=== PATIENT | female | born 1980 | race Caucasian/White ===

== ENCOUNTER 2017-04-17 13:56 | Inpatient (IN) | payer OTHER ==
[2017-04-17 13:56] VITALS: BMI 26.6
[2017-04-17] MEDS ORDERED: Sodium Chloride 0.9% 1,000 ML IV ONE ×2 (14:07→18:09)
[2017-04-17] MEDS ORDERED: Morphine 4 MG/ML VIAL ONE ×2 (14:13→17:30)
[2017-04-17] MEDS ORDERED: Sodium Chloride 0.9% 1,000 ML ONE (14:13)
--- NOTE | 2017-04-17 14:14 | C.PDOC ---
History Of Present Illness Patient is a 36 year old female who presents to the ER with a complaint of right sided abdominal pain that began today. Patient reports she had a laparoscopic cholecystectomy done 6 days ago and states she has felt fine until this pain today. Patient notes she did not attempt to contact her surgeon and has been taking percocet for the pain. Denies fever, chills, nausea or vomiting. Time Seen by Provider: 04/17/17 13:59 Chief Complaint (Nursing): Abdominal Pain History Per: Patient History/Exam Limitations: no limitations Onset/Duration Of Symptoms: Days (6) Current Symptoms Are (Timing): Still Present Location Of Pain/Discomfort: RUQ Radiation Of Pain To:: None Quality Of Discomfort: Unable To Describe Associated Symptoms: denies: Fever, Chills, Nausea, Vomiting Exacerbating Factors: None Alleviating Factors: None Recent travel outside of the [place]: No Abnormal Vaginal Bleeding: No Past Medical History Reviewed: Historical Data, Nursing Documentation, Vital Signs Vital Signs: Last Vital Signs Temp 98.4 F 04/17/17 17:09 Pulse 71 04/17/17 17:09 Resp 20 04/17/17 17:09 BP 141/89 04/17/17 17:09 Pulse Ox 98 04/17/17 18:09 - Medical History PMH: Gall Bladder Disease (Gall bladder stones), Migraine Surgical History: Cholecystectomy (04/11/2017) - [facility] Procedures MANUAL ASSIST KENNY SMITH (08/05/13) Family History: States: Unknown Family Hx - Social History Hx Tobacco Use: No Hx Alcohol Use: No Hx Substance Use: No - Immunization History Hx Tetanus Toxoid Vaccination: No Hx Influenza Vaccination: No Hx Pneumococcal Vaccination: No Review Of Systems Except As Marked, All Systems Reviewed And Found Negative. Constitutional: Negative for: Fever, Chills Gastrointestinal: Positive for: Abdominal Pain (RUQ). Negative for: Nausea, Vomiting Physical Exam - Physical Exam Appears: Non-toxic, No Acute Distress Skin: Normal Color, Warm, Dry Head: Atraumatic, Normacephalic Oral Mucosa: Moist Chest: Symmetrical, No Tenderness Cardiovascular: Rhythm Regular, No Murmur Respiratory: Normal Breath Sounds, No Rales, No Rhonchi, No Wheezing Gastrointestinal/Abdominal: Soft, Tenderness (RUQ) Neurological/Psych: Oriented x3, Normal Speech, Normal Cognition Gait: Steady ED Course And Treatment - Laboratory Results Result Diagrams: 04/17/17 14:38 04/17/17 14:38 Lab Interpretation: Abnormal Urine POC: Negative O2 Sat by Pulse Oximetry: 98 (Room air) Pulse Ox Interpretation: Normal - CT Scan/US No standard instances Other Rad Studies (CT/US): Read By Radiologist, Radiology Report Reviewed CT/US Interpretation: FINDINGS: LOWER THORAX: Unremarkable. LIVER: Unremarkable. No gross lesion or ductal dilatation. GALLBLADDER AND BILE DUCTS : Status post laparoscopic cholecystectomy 6 days previous. Small amount of fluid/soft tissue density seen in gallbladder fossa. PANCREAS: Unremarkable. No gross lesion or ductal dilatation. SPLEEN: Unremarkable. ADRENALS: Unremarkable. No mass. KIDNEYS AND URETERS: Unremarkable. No hydronephrosis. No solid mass. VASCULATURE: Unremarkable. No aortic aneurysm. BOWEL: Mild circumferential mural thickening of descending colon most likely artifactual secondary to lack of distension. APPENDIX: Unremarkable. Normal appendix. PERITONEUM: Small amount of fluid in cul-de-sac. Minimal fluid inferior to right lobe of liver and right pericolic gutter. Small amount of pneumoperitoneum identified. This is likely residual status post cholecystectomy. LYMPH NODES: Unremarkable. No enlarged lymph nodes. BLADDER : Unremarkable. REPRODUCTIVE: Normal uterus. BONES: No acute fracture. OTHER FINDINGS: None. IMPRESSION: Expected postoperative changes 6 day status post laparoscopic cholecystectomy. These include a small amount of pneumoperitoneum. Small amount of fluid in cul-de-sac and fluid/soft tissue density in gallbladder fossa. No evidence of abscess. No other significant abnormality. Progress Note: CT of abd/pel, blood work and urinalysis ordered. Morphine and IV fluids administered. Treated with additional IVF NSS and toradol 30 mg IV. Case discussed and patient evaluated by surgical supervisor. Treated with additional IVF and Zosyn. Continues to C/O abdominal pain. Treated with additional morphine 4 mg IV Reassessment Condition: Unchanged - Physician Consult Information Physician Contacted: Dorie Anton Outcome Of Conversation: admit Disposition Discussed With : Dorie Anton Doctor Will See Patient In The: Hospital - Disposition Disposition: HOME/ ROUTINE Disposition Time: 17:40 Condition: STABLE - POA Present On Arrival: None - Clinical Impression Clinical Impression: Abdominal pain - Scribe Statement The provider has reviewed the documentation as recorded by the Scribmaxine Walden All medical record entries made by the Suzieibe were at my direction and personally dictated by me. I have reviewed the chart and agree that the record accurately reflects my personal performance of the history, physical exam, medical decision making, and the department course for this patient. I have also personally directed, reviewed, and agree with the discharge instructions and disposition.
[2017-04-17 14:49] LABS: BASO # 0.2 K/uL (0.0-0.2); BASO % 0.9 % (0.0-2.0); EOS % 0.2 % (0.0-4.0); HEMATOCRIT 38.5 % (34.0-47.0); LYMPH # 1.8 K/uL (1.0-4.3); LYMPH % 8.9 % (20.0-40.0); MEAN CORPUSCULAR HEMOGLOBIN 25.8 pg (27.0-31.0); MEAN CORPUSCULAR HGB CONC 31.9 g/dL (33.0-37.0); MEAN PLATELET VOLUME 8.7 fL (7.2-11.7); MONO # 0.6 K/uL (0.0-0.8); MONO % 3.2 % (0.0-10.0); PLATELET COUNT 331 K/uL (130-400)
[2017-04-17 15:00] LABS: MEAN CELL VOLUME 80.6 fL (81.0-99.0); WHITE BLOOD COUNT 20.2 K/uL (4.8-10.8)
[2017-04-17 15:15] LABS: CHLORIDE 97 mmol/L (98-107); POTASSIUM 3.7 mmol/L (3.6-5.2); SODIUM 136 mmol/L (132-148)
[2017-04-17 15:17] LABS: BILIRUBIN,TOTAL 0.5 mg/dL (0.2-1.3); GFR AFRICAN-AMERICAN > 60
[2017-04-17 15:18] LABS: ALB/GLOB RATIO 1.1 (1.0-2.1); ALKALINE PHOSPHATASE 57 U/L (38-126); ALT/SGPT 45 U/L (9-52); AST/SGOT 31 U/L (14-36); BLOOD UREA NITROGEN 13 mg/dL (7-17); CALCIUM 8.8 mg/dl (8.6-10.4); CARBON DIOXIDE 23 mmol/L (22-30); GLUCOSE,RANDOM 112 mg/dL (65-105); TOTAL PROTEIN 7.7 g/dL (6.3-8.3)
[2017-04-17 15:23] LABS: EOSINOPHIL 1 % (0-4); NEUTROPHIL 88 % (50-75); TOTAL CELLS COUNTED 100
[2017-04-17 15:44] LABS: RBC URINE 5 /hpf (0-3); URINE BACTERIA RARE (<OCC); URINE BILIRUBIN NEGATIVE (NEGATIVE); URINE BLOOD 1+ (NEGATIVE); URINE COLOR Yellow (YELLOW); URINE GLUCOSE (UA) NORMAL (Normal); URINE HYALINE CAST 0-2 /lpf (0-2); URINE KETONE NEGATIVE (NEGATIVE); URINE LEUKOCYTE ESTERASE 1+ Leu/uL (Negative); URINE PROTEIN 1+ mg/dL (NEGATIVE); URINE UROBILINOGEN NORMAL mg/dL (0.2-1.0); WBC URINE 14 /hpf (0-5)
--- NOTE | 2017-04-17 16:18 | CT ---
PROCEDURE: CT Abdomen and Pelvis without intravenous contrast HISTORY: Pain COMPARISON: None. TECHNIQUE: Without contrast.. Contrast Dose: 0 Radiation dose: Total exam DLP = 429.88 mGy-cm. This CT exam was performed using one or more of the following dose reduction techniques: Automated exposure control, adjustment of the mA and/or kV according to patient size, and/or use of iterative reconstruction technique. FINDINGS: LOWER THORAX: Unremarkable. LIVER: Unremarkable. No gross lesion or ductal dilatation. GALLBLADDER AND BILE DUCTS: Status post laparoscopic cholecystectomy 6 days previous. Small amount of fluid/soft tissue density seen in gallbladder fossa. PANCREAS: Unremarkable. No gross lesion or ductal dilatation. SPLEEN: Unremarkable. ADRENALS: Unremarkable. No mass. KIDNEYS AND URETERS: Unremarkable. No hydronephrosis. No solid mass. VASCULATURE: Unremarkable. No aortic aneurysm. BOWEL: Mild circumferential mural thickening of descending colon most likely artifactual secondary to lack of distension. APPENDIX: Unremarkable. Normal appendix. PERITONEUM: Small amount of fluid in cul-de-sac. Minimal fluid inferior to right lobe of liver and right pericolic gutter. Small amount of pneumoperitoneum identified. This is likely residual status post cholecystectomy. LYMPH NODES: Unremarkable. No enlarged lymph nodes. BLADDER: Unremarkable. REPRODUCTIVE: Normal uterus. BONES: No acute fracture. OTHER FINDINGS: None. IMPRESSION: Expected postoperative changes 6 day status post laparoscopic cholecystectomy. These include a small amount of pneumoperitoneum. Small amount of fluid in cul-de-sac and fluid/soft tissue density in gallbladder fossa. No evidence of abscess. No other significant abnormality.
[2017-04-17] MEDS ORDERED: Piperacillin/Tazobact 3.375 gm 100 ML IV STA (17:28)
--- NOTE | 2017-04-17 18:20 | CP.PCM.CON ---
<Karri Leo - Last Filed: 04/17/17 19:46> History of Present Illness - History of Present Illness History of Present Illness: Surgery: Dr. Richards CC: abd pain HPI: 36F recently underwent lap liane 6 days ago at [place] for cholecystitis. Pt does not recall surgeons name. Post operatively pt was doing well up until today. Starting today she had acute onset of abd pain. Pain was described as burning. Pain is diffuse but more prominent on the R side. Pt states that the pain radiates to the back and radiates to the groin. She states that she has nausea and vomitted 3xm NBNB. She reports subjective fever and chills. She also stats that she has pain on urination. Denies any hematuria. She denies [place]/blurred vision, no CP/palpitations, no SOB/cough, no diarrhea. PMH: migraine PSH: lap liane Meds: MAR reviewed NKDA Social: No ETOH/tobacco/drugs Fhx: non-contributory Review of Systems - Review of Systems All systems: reviewed and no additional remarkable complaints except (HPI) Past Patient History - Infectious Disease Hx of Infectious Diseases: None - Past Social History Smoking Status: Never Smoked - NEUROLOGICAL Hx Migraine: Yes - GASTROINTESTINAL Hx Gall Bladder Disease: Yes (Gall bladder stones) - PSYCHIATRIC Hx Substance Use: No - SURGICAL HISTORY Hx Cholecystectomy: Yes (04/11/2017) - ANESTHESIA Hx Anesthesia: Yes Hx Anesthesia Reactions: No Hx Malignant Hyperthermia: No Meds Allergies/Adverse Reactions: Allergies Allergy/AdvReac Type Severity Reaction Status Date / Time No Known Allergies Allergy Verified 04/17/17 14:05 - Medications Medications: Current Medications Sodium Chloride (Sodium Chloride 0.9%) 1,000 mls @ 100 mls/hr IV .Q10H [facility] Sodium Chloride (Sodium Chloride 0.9%) 1,000 mls @ 1,000 mls/hr IV .Q1H ONE Stop: 04/17/17 19:08 Physical Exam - Constitutional Appears: Non-toxic, In Acute Distress - Head Exam Head Exam: ATRAUMATIC, NORMOCEPHALIC - Eye Exam Eye Exam: EOMI. absent: Scleral icterus - ENT Exam ENT Exam: Mucous Membranes Moist, Normal External Ear Exam - Neck Exam Neck exam: Positive for: Full Rom - Respiratory Exam Respiratory Exam: NORMAL BREATHING PATTERN. absent: Accessory Muscle Use, Respiratory Distress - GI/Abdominal Exam GI & Abdominal Exam: Guarding, Soft, Tenderness (diffuse, R>L). absent: Distended, Firm, Rebound, Rigid - Extremities Exam Extremities exam: Negative for: calf tenderness, pedal edema - Back Exam Back exam: CVA tenderness (R) (exquisitely tender). absent: CVA tenderness (L) - Neurological Exam Neurological exam: Alert, Oriented x3 - Skin Skin Exam: Dry, Normal Color, Warm Results - Vital Signs Recent Vital Signs: Last Vital Signs Temp 98.4 F 04/17/17 17:09 Pulse 71 04/17/17 17:09 Resp 20 04/17/17 17:09 BP 141/89 04/17/17 17:09 Pulse Ox 98 04/17/17 18:09 - Labs Result Diagrams: 04/17/17 14:38 04/17/17 14:38 - Imaging and Cardiology CT scan - abdomen Status: Image reviewed by me, Report reviewed by me Assessment & Plan - Assessment and Plan (Free Text) Assessment: 36F s/p lap liane POD#6 w. acute onset abd pain. Do not think pain is related to sx. DDX: Nephrolithaisis/Pyelonephritis/UTI -NPO -IVF -IV abx -pain meds -zofran -serial abd exams -f/u renal U/S -will follow closely -case d/w attending Ahmet PGY2 <Clinton Richards - Last Filed: 04/19/17 22:24> Meds - Medications Medications: Current Medications Hydromorphone HCl (Dilaudid) 0.5 mg IVP Q4H PRN PRN Reason: Pain, moderate (4-7) Last Admin: 04/18/17 01:37 Dose: 0.5 mg Sodium Chloride (Sodium Chloride 0.9%) 1,000 mls @ 100 mls/hr IV .Q10H [facility] Last Admin: 04/19/17 21:47 Dose: 100 mls/hr Piperacillin Sod/Tazobactam Sod (Zosyn 2.25 Gm Iv Premix) 2.25 gm in 50 mls @ 100 mls/hr IVPB Q6H [facility] Last Admin: 04/19/17 18:44 Dose: 100 mls/hr Ondansetron HCl (Zofran Inj) 4 mg IVP Q4 PRN PRN Reason: Nausea/Vomiting Pantoprazole Sodium (Protonix Inj) 40 mg IVP DAILY [facility] Last Admin: 04/19/17 10:05 Dose: 40 mg Simethicone (Mylicon Chew Tab) 80 mg PO DAILY [facility] Last Admin: 04/19/17 12:14 Dose: Not Given Results - Vital Signs Recent Vital Signs: Last Vital Signs Temp 98.1 F 04/19/17 16:00 Pulse 95 H 04/19/17 16:00 Resp 20 04/19/17 16:00 BP 134/75 04/19/17 16:00 Pulse Ox 93 L 04/19/17 16:00 - Labs Result Diagrams: 04/19/17 08:07 04/19/17 08:07 Labs: Laboratory Results - last 24 hr 04/19/17 04/19/17 08:07 08:07 WBC 7.7 RBC 3.85 Hgb 10.1 L Hct 31.1 L MCV 80.8 L MCH 26.3 L MCHC 32.6 L RDW 13.5 Plt Count 263 MPV 8.5 Neut % (Auto) 65.6 Lymph % (Auto) 24.3 [place] % (Auto) 6.0 Eos % (Auto) 3.5 Baso % (Auto) 0.6 Neut # 5.0 Lymph # 1.9 [place] # 0.5 Eos # 0.3 Baso # 0.0 Sodium 139 Potassium 3.4 L Chloride 108 H Carbon Dioxide 23 Anion Gap 11 BUN 5 L Creatinine 0.7 Est GFR ( Amer) > 60 Est GFR (Non-Af Amer) > 60 Random Glucose 114 H Calcium 8.0 L Total Bilirubin 0.6 AST 19 ALT 36 Alkaline Phosphatase 51 Total Protein 6.3 Albumin 3.2 L Globulin 3.1 Albumin/Globulin Ratio 1.0 Attending/Attestation - Attestation I have personally seen and examined this patient.: Yes I have fully participated in the care of the patient.: Yes I have reviewed all pertinent clinical information: Yes Notes (Text): 04/19/17 22:24 Pt was seen and examined at bedside on 04/18/17 Agree with above note and assessment. Pt with abdominal pain s/p Lap Cholecystectomy, UTI C/w IV antibiotics Plan d.w pt in detail Risk and benefit explained in detail.
[2017-04-17] MEDS ORDERED: metroNIDAZOLE IV 500 mg/100 ml 500 MG/100 ML BAG IVPB SCH (19:00)
[2017-04-17] MEDS: Sodium Chloride 0.9% 1,000 ML IV SCH (19:17)
[2017-04-17] MEDS ORDERED: Ciprofloxacin 400mg/200ml D5W 400 MG/200 ML BAG IVPB SCH (19:30)
--- NOTE | 2017-04-17 19:51 | CP.PCM.HP ---
History of Present Illness - History of Present Illness History of Present Illness: CC: abdominal pain HPI: 36F with history of recent lap liane 6 days ago for cholecystitis presented today. Pt has been doing well until today when she started having right sided abdominal pain. Patient said she has pain RLQ and RUQ and both described as sharp pain. Her RLQ pain radiates to the back. Patient also said she has associated burning urination, fever and chills. Patient also had 3 episodes of NBNB vomit. Patient also said she only had one episode of BM since her operation. Denied chest pain, palpitations, SOB, diarrhea, hematuria. PMHx: cholecystitis PSHx: lap liane 6 days ago FMHx: father had [place], mother has HTN Social: Denied ETOH or smoking Present on Admission - Present on Admission Any Indicators Present on Admission: No Review of Systems - Constitutional Constitutional: absent: Anorexia, Weakness - Cardiovascular Cardiovascular: absent: Chest Pain, Dyspnea, Pedal Edema - Respiratory Respiratory: absent: Cough, Dyspnea - Gastrointestinal Gastrointestinal: Abdominal Pain, Constipation, Nausea, Vomiting. absent: Diarrhea - Genitourinary Genitourinary: Pyuria. absent: Dysuria Past Patient History - Infectious Disease Hx of Infectious Diseases: None - Past Social History Smoking Status: Never Smoked - NEUROLOGICAL Hx Migraine: Yes - GASTROINTESTINAL Hx Gall Bladder Disease: Yes (Gall bladder stones) - PSYCHIATRIC Hx Substance Use: No - SURGICAL HISTORY Hx Cholecystectomy: Yes (04/11/2017) - ANESTHESIA Hx Anesthesia: Yes Hx Anesthesia Reactions: No Hx Malignant Hyperthermia: No Meds Allergies/Adverse Reactions: Allergies Allergy/AdvReac Type Severity Reaction Status Date / Time No Known Allergies Allergy Verified 04/17/17 14:05 Physical Exam - Constitutional Appears: Non-toxic, In Acute Distress - Head Exam Head Exam: NORMOCEPHALIC - Eye Exam Eye Exam: Normal appearance Pupil Exam: NORMAL ACCOMODATION - Respiratory Exam Respiratory Exam: Clear to Auscultation Bilateral, NORMAL BREATHING PATTERN. absent: Rhonchi, Wheezes - Cardiovascular Exam Cardiovascular Exam: REGULAR RHYTHM, +S1, +S2. absent: Gallop, Rubs - GI/Abdominal Exam GI & Abdominal Exam: Guarding, Normal Bowel Sounds, Soft, Tenderness. absent: Distended, Firm, Hernia, Rebound, Rigid - Extremities Exam Extremities exam: Negative for: pedal edema - Neurological Exam Neurological exam: Alert, Oriented x3 - Psychiatric Exam Psychiatric exam: Normal Mood - Skin Additional comments: RLQ and RUQ, paraumbilical and RUQ incisions dry, intact and nonerythematous Results - Vital Signs Recent Vital Signs: Last Vital Signs Temp 98.4 F 04/17/17 17:09 Pulse 71 04/17/17 17:09 Resp 20 04/17/17 17:09 BP 141/89 04/17/17 17:09 Pulse Ox 98 04/17/17 18:40 - Labs Result Diagrams: 04/17/17 14:38 04/17/17 14:38 Assessment & Plan - Assessment and Plan (Free Text) Assessment: Abdominal pain Secondary to nephrolithiasis vs GI issue CT showed small amount of pneumoperitoneum, no abscess and small amount of fluid in cul de sac in gallbladder fossa per report. NPO. NS@100ml/hr. Zosyn q6H. Surgery Dr. Richards consulted, help appreciated. GI Dr. Resendiz consulted, help appreciated. Morphine 4mg IVP q4H PRN and Toradol 30mg IVP q6H PRN. F/U renal and bladder ultrasound. Prophylactic measure Protonix, SCD.
[2017-04-17] MEDS: HYDROmorphone 0.5 mg/0.5 ml ISec IVP PRN (20:08)
[2017-04-17] MEDS: Piperacill/Tazo 2.25gm in Dex 2.25 GM/50 ML BAG IVPB SCH (23:33)
[2017-04-18 00:34] VITALS: RESP 20
[2017-04-18] MEDS: HYDROmorphone 0.5 mg/0.5 ml ISec IVP PRN (01:37)
[2017-04-18] MEDS: Sodium Chloride 0.9% 1,000 ML IV SCH ×3 (03:48→18:20)
[2017-04-18] MEDS: Piperacill/Tazo 2.25gm in Dex 2.25 GM/50 ML BAG IVPB SCH ×3 (05:42→18:19)
--- NOTE | 2017-04-18 07:02 | CP.PCM.PN ---
<ChintanlouislaureKarri - Last Filed: 04/18/17 07:03> Subjective - Date & Time of Evaluation Date of Evaluation: 04/18/17 Time of Evaluation: 06:59 - Subjective Subjective: Surgery: Dr. Richards Pt seen and examined. Pain is significantly improved compared to yesterday. Pt still has dysuria. She states that she has gas pain. She also states that she is hungry. Objective - Vital Signs/Intake and Output Vital Signs (last 24 hours): Temp Pulse Resp BP Pulse Ox 98.4 F 85 20 121/74 98 04/18/17 00:00 04/18/17 00:00 04/18/17 00:00 04/18/17 00:00 04/18/17 00:00 Intake and Output: 04/17/17 04/18/17 18:59 06:59 Intake Total 1200 Balance 1200 - Medications Medications: Current Medications Hydromorphone HCl (Dilaudid) 0.5 mg IVP Q4H PRN PRN Reason: Pain, moderate (4-7) Last Admin: 04/18/17 01:37 Dose: 0.5 mg Sodium Chloride (Sodium Chloride 0.9%) 1,000 mls @ 100 mls/hr IV .Q10H [facility] Last Admin: 04/18/17 03:48 Dose: 100 mls/hr Piperacillin Sod/Tazobactam Sod (Zosyn 2.25 Gm Iv Premix) 2.25 gm in 50 mls @ 100 mls/hr IVPB Q6H [facility] Last Admin: 04/18/17 05:42 Dose: 100 mls/hr Ketorolac Tromethamine (Toradol) 30 mg IVP Q6 PRN PRN Reason: moderate pain Last Admin: 04/18/17 02:28 Dose: 30 mg Morphine Sulfate (Morphine) 4 mg IVP Q4 PRN PRN Reason: severe pain Ondansetron HCl (Zofran Inj) 4 mg IVP Q4 PRN PRN Reason: Nausea/Vomiting Pantoprazole Sodium (Protonix Inj) 40 mg IVP DAILY [facility] Pneumococcal Polyvalent Vaccine (Pneumovax 23 Vaccine) 0.5 ml IM .ONCE ONE Stop: 04/19/17 10:01 - Constitutional Appears: Non-toxic, No Acute Distress - Head Exam Head Exam: ATRAUMATIC, NORMOCEPHALIC - Eye Exam Eye Exam: EOMI - ENT Exam ENT Exam: Mucous Membranes Moist - Neck Exam Neck Exam: Full ROM, Normal Inspection - Respiratory Exam Respiratory Exam: NORMAL BREATHING PATTERN. absent: Accessory Muscle Use, Respiratory Distress - GI/Abdominal Exam GI & Abdominal Exam: Soft, Tenderness (mild). absent: Distended, Firm, Guarding , Rigid, Rebound - Extremities Exam Extremities Exam: absent: Calf Tenderness, Pedal Edema - Back Exam Back Exam: absent: CVA tenderness (L), CVA tenderness (R) - Neurological Exam Neurological Exam: Alert, Awake, Oriented x3 Assessment and Plan - Assessment and Plan (Free Text) Assessment: 36F s/p lap liane POD#7 w. acute onset abd pain. DDX: Nephrolithaisis/Pyelonephritis/UTI -will start CLD, monitor bowel fxn, ADAT -f/u AM labs -f/u Cx results -IVF -IV abx -pain meds -zofran -serial abd exams -f/u renal U/S -case d/w attending Ahmet PGY2 <Clinton Richards B - Last Filed: 04/19/17 22:25> Objective - Vital Signs/Intake and Output Vital Signs (last 24 hours): Temp Pulse Resp BP Pulse Ox 98.1 F 95 H 20 134/75 93 L 04/19/17 16:00 04/19/17 16:00 04/19/17 16:00 04/19/17 16:00 04/19/17 16:00 Intake and Output: 04/19/17 04/20/17 18:59 06:59 Intake Total 1280 Balance 1280 - Medications Medications: Current Medications Hydromorphone HCl (Dilaudid) 0.5 mg IVP Q4H PRN PRN Reason: Pain, moderate (4-7) Last Admin: 04/18/17 01:37 Dose: 0.5 mg Sodium Chloride (Sodium Chloride 0.9%) 1,000 mls @ 100 mls/hr IV .Q10H [facility] Last Admin: 04/19/17 21:47 Dose: 100 mls/hr Piperacillin Sod/Tazobactam Sod (Zosyn 2.25 Gm Iv Premix) 2.25 gm in 50 mls @ 100 mls/hr IVPB Q6H [facility] Last Admin: 04/19/17 18:44 Dose: 100 mls/hr Ondansetron HCl (Zofran Inj) 4 mg IVP Q4 PRN PRN Reason: Nausea/Vomiting Pantoprazole Sodium (Protonix Inj) 40 mg IVP DAILY [facility] Last Admin: 04/19/17 10:05 Dose: 40 mg Simethicone (Mylicon Chew Tab) 80 mg PO DAILY [facility] Last Admin: 04/19/17 12:14 Dose: Not Given - Labs Labs: 04/19/17 08:07 04/19/17 08:07 Attending/Attestation - Attestation I have personally seen and examined this patient.: Yes I have fully participated in the care of the patient.: Yes I have reviewed all pertinent clinical information, including history, physical exam and plan: Yes Notes (Text): 04/19/17 22:25 Pt was seen and examined at bedside on 04/18/17 Agree with above note and assessment. Pt with abdominal pain s/p Lap Cholecystectomy, UTI C/w IV antibiotics Plan d.w pt in detail Risk and benefit explained in detail.
--- NOTE | 2017-04-18 08:15 | CP.PCM.PN ---
<Fer Hall - Last Filed: 04/18/17 08:12> Subjective - Date & Time of Evaluation Date of Evaluation: 04/18/17 Time of Evaluation: 08:00 - Subjective Subjective: PGY3 on medicine Dr. Ferguson service: Pt seen and examined at bedside this morning. Pt reports her RLQ pain much improved since yesterday. Her RUQ pain persisted and additionally mild epigastric pain. She also said she is hungry. Pyuria still persisted, no BM. No acute events overnight per RN. Objective - Vital Signs/Intake and Output Vital Signs (last 24 hours): Temp Pulse Resp BP Pulse Ox 98.4 F 85 20 121/74 98 04/18/17 00:00 04/18/17 00:00 04/18/17 00:00 04/18/17 00:00 04/18/17 00:00 Intake and Output: 04/18/17 04/18/17 06:59 18:59 Intake Total 1200 Balance 1200 - Medications Medications: Current Medications Hydromorphone HCl (Dilaudid) 0.5 mg IVP Q4H PRN PRN Reason: Pain, moderate (4-7) Last Admin: 04/18/17 01:37 Dose: 0.5 mg Sodium Chloride (Sodium Chloride 0.9%) 1,000 mls @ 100 mls/hr IV .Q10H [facility] Last Admin: 04/18/17 03:48 Dose: 100 mls/hr Piperacillin Sod/Tazobactam Sod (Zosyn 2.25 Gm Iv Premix) 2.25 gm in 50 mls @ 100 mls/hr IVPB Q6H [facility] Last Admin: 04/18/17 05:42 Dose: 100 mls/hr Ketorolac Tromethamine (Toradol) 30 mg IVP Q6 PRN PRN Reason: moderate pain Last Admin: 04/18/17 02:28 Dose: 30 mg Ondansetron HCl (Zofran Inj) 4 mg IVP Q4 PRN PRN Reason: Nausea/Vomiting Pantoprazole Sodium (Protonix Inj) 40 mg IVP DAILY [facility] Pneumococcal Polyvalent Vaccine (Pneumovax 23 Vaccine) 0.5 ml IM .ONCE ONE Stop: 04/19/17 10:01 - Constitutional Appears: Non-toxic, No Acute Distress - Head Exam Head Exam: NORMAL INSPECTION, NORMOCEPHALIC - Eye Exam Eye Exam: Normal appearance Pupil Exam: NORMAL ACCOMODATION - ENT Exam ENT Exam: Mucous Membranes Moist - Respiratory Exam Respiratory Exam: Clear to Ausculation Bilateral, NORMAL BREATHING PATTERN. absent: Rhonchi, Wheezes - Cardiovascular Exam Cardiovascular Exam: REGULAR RHYTHM, +S1, +S2. absent: Gallop, Rubs - GI/Abdominal Exam GI & Abdominal Exam: Soft, Tenderness (epigastric and RUQ), Normal Bowel Sounds. absent: Distended, Guarding, Rebound - Extremities Exam Extremities Exam: absent: Pedal Edema - Neurological Exam Neurological Exam: Alert, Awake, Oriented x3 - Psychiatric Exam Psychiatric exam: Normal Mood - Skin Skin Exam: Intact Assessment and Plan - Assessment and Plan (Free Text) Assessment: Abdominal pain Secondary to nephrolithiasis vs GI issue CT showed small amount of pneumoperitoneum, no abscess and small amount of fluid in cul de sac in gallbladder fossa per report. 04/17: advance diet to CLD per surgery. F/U today's labs, CXR and renal ultrasound. NS@100ml/hr. Zosyn q6H. Surgery Dr. Richards consulted, help appreciated. GI Dr. Resendiz consulted, help appreciated. Morphine 4mg IVP q4H PRN and Toradol 30mg IVP q6H PRN. Prophylactic measure Protonix, SCD. <Brendon Ferguson H - Last Filed: 04/18/17 12:44> Objective - Vital Signs/Intake and Output Vital Signs (last 24 hours): Temp Pulse Resp BP Pulse Ox 98.2 F 77 20 116/77 99 04/18/17 08:27 04/18/17 08:27 04/18/17 08:27 04/18/17 08:27 04/18/17 08:27 Intake and Output: 04/18/17 04/18/17 06:59 18:59 Intake Total 1200 Balance 1200 - Medications Medications: Current Medications Hydromorphone HCl (Dilaudid) 0.5 mg IVP Q4H PRN PRN Reason: Pain, moderate (4-7) Last Admin: 04/18/17 01:37 Dose: 0.5 mg Sodium Chloride (Sodium Chloride 0.9%) 1,000 mls @ 100 mls/hr IV .Q10H [facility] Last Admin: 04/18/17 03:48 Dose: 100 mls/hr Piperacillin Sod/Tazobactam Sod (Zosyn 2.25 Gm Iv Premix) 2.25 gm in 50 mls @ 100 mls/hr IVPB Q6H [facility] Last Admin: 04/18/17 12:36 Dose: 100 mls/hr Ketorolac Tromethamine (Toradol) 30 mg IVP Q6 PRN PRN Reason: moderate pain Last Admin: 04/18/17 02:28 Dose: 30 mg Ondansetron HCl (Zofran Inj) 4 mg IVP Q4 PRN PRN Reason: Nausea/Vomiting Pantoprazole Sodium (Protonix Inj) 40 mg IVP DAILY [facility] Last Admin: 04/18/17 11:13 Dose: 40 mg Pneumococcal Polyvalent Vaccine (Pneumovax 23 Vaccine) 0.5 ml IM .ONCE ONE Stop: 04/19/17 10:01 - Labs Labs: 04/18/17 09:03 04/18/17 09:03 Attending/Attestation - Attestation I have personally seen and examined this patient.: Yes I have fully participated in the care of the patient.: Yes I have reviewed all pertinent clinical information, including history, physical exam and plan: Yes Notes (Text): 04/18/17 12:42 Medical Attending: Patient was seen and examined by me. Agree with the above note by the resident The patient WBC has decreased and the left shift decreased as well. Less pain today and is being started on a diet. Continue IV abx, monitor the cultures, possible UTI related Brendon Ferguson
--- NOTE | 2017-04-18 09:11 | CP.PCM.CON ---
History of Present Illness - History of Present Illness History of Present Illness: CC: Abdominal pain HPI: GI service consult requested for abdominal pain, S?P cholecystectomy [address]- normal postop changes in GB fossa. WBC elevated. Pain is ruQ and RLQ, without N/V, also pain in right flank. Started on Zosyn after UA showed pyuria. Seen by surgery consult and felt not to be related to GB process, but most likely infection. presently patient feels resolution of pain and is hungry. labs from today not available. Denies changes in bowel habits. Review of Systems - Constitutional Constitutional: Night Sweats. absent: Anorexia, Chills, Fever - EENT Eyes: absent: Change in Vision Nose/Mouth/Throat: absent: Nasal Discharge - Cardiovascular Cardiovascular: absent: Chest Pain - Respiratory Respiratory: absent: Dyspnea - Gastrointestinal Gastrointestinal: Abdominal Pain. absent: Change in Stool Character, Constipation, Diarrhea, Loose Stools, Melena, Nausea - Genitourinary Genitourinary: Dysuria - Musculoskeletal Musculoskeletal: Back Pain - Integumentary Integumentary: absent: Sores, Jaundice - Neurological Neurological: absent: Loss of Vision, Vertigo - Psychiatric Psychiatric: absent: Anxiety Past Patient History - Infectious Disease Hx of Infectious Diseases: None - Past Medical History & Family History Past Medical History?: Yes - Past Social History Smoking Status: Never Smoked - NEUROLOGICAL Hx Migraine: Yes - MUSCULOSKELETAL/RHEUMATOLOGICAL Hx Falls: No - GASTROINTESTINAL Hx Gall Bladder Disease: Yes (Gall bladder stones) - PSYCHIATRIC Hx Substance Use: No - SURGICAL HISTORY Hx Cholecystectomy: Yes (04/11/2017) - ANESTHESIA Hx Anesthesia: Yes Hx Anesthesia Reactions: No Hx Malignant Hyperthermia: No Has any member of the family had a problem w/ anesthesia?: No Meds Allergies/Adverse Reactions: Allergies Allergy/AdvReac Type Severity Reaction Status Date / Time No Known Allergies Allergy Verified 04/17/17 14:05 - Medications Medications: Current Medications Hydromorphone HCl (Dilaudid) 0.5 mg IVP Q4H PRN PRN Reason: Pain, moderate (4-7) Last Admin: 04/18/17 01:37 Dose: 0.5 mg Sodium Chloride (Sodium Chloride 0.9%) 1,000 mls @ 100 mls/hr IV .Q10H [facility] Last Admin: 04/18/17 03:48 Dose: 100 mls/hr Piperacillin Sod/Tazobactam Sod (Zosyn 2.25 Gm Iv Premix) 2.25 gm in 50 mls @ 100 mls/hr IVPB Q6H [facility] Last Admin: 04/18/17 05:42 Dose: 100 mls/hr Ketorolac Tromethamine (Toradol) 30 mg IVP Q6 PRN PRN Reason: moderate pain Last Admin: 04/18/17 02:28 Dose: 30 mg Ondansetron HCl (Zofran Inj) 4 mg IVP Q4 PRN PRN Reason: Nausea/Vomiting Pantoprazole Sodium (Protonix Inj) 40 mg IVP DAILY [facility] Pneumococcal Polyvalent Vaccine (Pneumovax 23 Vaccine) 0.5 ml IM .ONCE ONE Stop: 04/19/17 10:01 Physical Exam - Constitutional Appears: Well, No Acute Distress - Head Exam Head Exam: ATRAUMATIC, NORMOCEPHALIC - Eye Exam Eye Exam: absent: Scleral icterus - Neck Exam Neck exam: Positive for: Normal Inspection - Respiratory Exam Respiratory Exam: Clear to Auscultation Bilateral - Cardiovascular Exam Cardiovascular Exam: REGULAR RHYTHM - GI/Abdominal Exam GI & Abdominal Exam: Normal Bowel Sounds, Soft, Tenderness. absent: Distended, Guarding, Mass, Organomegaly, Rebound Results - Vital Signs Recent Vital Signs: Last Vital Signs Temp 98.2 F 04/18/17 08:27 Pulse 77 04/18/17 08:27 Resp 20 04/18/17 08:27 BP 116/77 04/18/17 08:27 Pulse Ox 99 04/18/17 08:27 - Labs Result Diagrams: 04/17/17 14:38 04/17/17 14:38 Labs: Laboratory Results - last 24 hr 04/17/17 18:46 Lactic Acid 1.8 Assessment & Plan (1) Abdominal pain Assessment and Plan: No evidence of postop infection or complication. Pain and leukocytosis most likely infection Rec: advance diet as tolerated. Monitor labwork. PPI Status: Acute
[2017-04-18 09:24] LABS: BASO % 0.3 % (0.0-2.0); EOS % 0.1 % (0.0-4.0); LYMPH # 1.8 K/uL (1.0-4.3); LYMPH % 12.8 % (20.0-40.0); MEAN CELL VOLUME 79.8 fL (81.0-99.0); MEAN CORPUSCULAR HEMOGLOBIN 26.1 pg (27.0-31.0); MEAN CORPUSCULAR HGB CONC 32.8 g/dL (33.0-37.0); MEAN PLATELET VOLUME 8.6 fL (7.2-11.7); MONO # 0.9 K/uL (0.0-0.8); MONO % 6.8 % (0.0-10.0); RED CELL DISTRIBUTION WIDTH 13.1 % (11.5-14.5); WHITE BLOOD COUNT 13.7 K/uL (4.8-10.8)
[2017-04-18 09:51] LABS: CHLORIDE 102 mmol/L (98-107)
[2017-04-18 09:52] LABS: POTASSIUM 3.9 mmol/L (3.6-5.2); SODIUM 134 mmol/L (132-148)
[2017-04-18 09:54] LABS: AST/SGOT 28 U/L (14-36); BILIRUBIN,TOTAL 0.8 mg/dL (0.2-1.3); BLOOD UREA NITROGEN 9 mg/dL (7-17); CARBON DIOXIDE 21 mmol/L (22-30); GFR AFRICAN-AMERICAN > 60; TOTAL PROTEIN 6.1 g/dL (6.3-8.3)
[2017-04-18 09:55] LABS: ALKALINE PHOSPHATASE 54 U/L (38-126); ALT/SGPT 41 U/L (9-52); GLUCOSE,RANDOM 106 mg/dL (65-105)
[2017-04-18 10:18] LABS: CALCIUM 7.5 mg/dl (8.6-10.4)
--- NOTE | 2017-04-18 12:23 | RAD ---
PROCEDURE: CHEST RADIOGRAPH, 1 VIEW HISTORY: SOB COMPARISON: None available. FINDINGS: LUNGS: Clear. PLEURA: No pneumothorax or pleural fluid seen. CARDIOVASCULAR: Normal. OSSEOUS STRUCTURES: No significant abnormalities. VISUALIZED UPPER ABDOMEN: Normal. OTHER FINDINGS: None. IMPRESSION: No active disease.
--- NOTE | 2017-04-18 15:35 | US ---
PROCEDURE: Ultrasound of the Kidneys HISTORY: abdominal pain, R CVA tenderness, r/o stone COMPARISON: None available. TECHNIQUE: Sonogram of the kidneys. FINDINGS: RIGHT KIDNEY: Measures: 10.3 cm. Normal in size, contour and echogenicity. No stone, solid mass lesion or hydronephrosis visualized. LEFT KIDNEY: Measures: 9.8 cm. Normal in size, contour and echogenicity. No stone, solid mass lesion or hydronephrosis visualized. OTHER FINDINGS: Distended urinary bladder measures 247.9 mL. Bladder wall is thin and smooth. Right ureteral jet demonstrated. Left ureteral jet was not identified. Postvoid residual is 100 mL. Incidentally noted is trace free fluid in cul-de-sac. IMPRESSION: 100 mL postvoid residual within urinary bladder. Unremarkable ultrasound of the kidneys.
[2017-04-19] MEDS: Piperacill/Tazo 2.25gm in Dex 2.25 GM/50 ML BAG IVPB SCH ×4 (00:15→18:44)
[2017-04-19] MEDS: Sodium Chloride 0.9% 1,000 ML IV SCH ×4 (00:37→21:47)
[2017-04-19 08:15] LABS: BASO % 0.6 % (0.0-2.0); EOS # 0.3 K/uL (0.0-0.7); EOS % 3.5 % (0.0-4.0); HEMATOCRIT 31.1 % (34.0-47.0); LYMPH # 1.9 K/uL (1.0-4.3); LYMPH % 24.3 % (20.0-40.0); MEAN CELL VOLUME 80.8 fL (81.0-99.0); MEAN CORPUSCULAR HEMOGLOBIN 26.3 pg (27.0-31.0); MEAN CORPUSCULAR HGB CONC 32.6 g/dL (33.0-37.0); MEAN PLATELET VOLUME 8.5 fL (7.2-11.7); MONO # 0.5 K/uL (0.0-0.8); RED CELL DISTRIBUTION WIDTH 13.5 % (11.5-14.5); WHITE BLOOD COUNT 7.7 K/uL (4.8-10.8)
[2017-04-19 08:25] LABS: CHLORIDE 108 mmol/L (98-107); POTASSIUM 3.4 mmol/L (3.6-5.2); SODIUM 139 mmol/L (132-148)
[2017-04-19 08:26] LABS: ALKALINE PHOSPHATASE 51 U/L (38-126); ALT/SGPT 36 U/L (9-52); AST/SGOT 19 U/L (14-36); BILIRUBIN,TOTAL 0.6 mg/dL (0.2-1.3); BLOOD UREA NITROGEN 5 mg/dL (7-17); CARBON DIOXIDE 23 mmol/L (22-30); GFR AFRICAN-AMERICAN > 60; GLUCOSE,RANDOM 114 mg/dL (65-105); TOTAL PROTEIN 6.3 g/dL (6.3-8.3)
[2017-04-19] MEDS ORDERED: Simethicone 80 mg Chewtab PO ONE (08:30)
[2017-04-19] MEDS ORDERED: Potassium Chloride 20 mEq ER Tab PO ONE (09:31)
[2017-04-19] MEDS ORDERED: Pneumococcal 23-Valent Vaccine IM ONE (10:00)
--- NOTE | 2017-04-19 10:36 | CP.PCM.PN ---
<Niko Chadwikc - Last Filed: 04/19/17 10:37> Subjective - Date & Time of Evaluation Date of Evaluation: 04/19/17 Time of Evaluation: 10:36 - Subjective Subjective: Gen Sx: Dr Richards Pt S&E. ANNMARIE. Reports pain has significantly improved. atmospheric drier tender around epigastric incision and states she feels bloated. Having BM. Tolerating liquids. Denies n/v, f/c. No longer has pain on urination. Objective - Vital Signs/Intake and Output Vital Signs (last 24 hours): Temp Pulse Resp BP Pulse Ox 98.4 F 76 20 128/78 98 04/19/17 08:00 04/19/17 08:00 04/19/17 08:00 04/19/17 08:00 04/19/17 08:00 Intake and Output: 04/19/17 04/19/17 06:59 18:59 Intake Total 1280 Balance 1280 - Medications Medications: Current Medications Hydromorphone HCl (Dilaudid) 0.5 mg IVP Q4H PRN PRN Reason: Pain, moderate (4-7) Last Admin: 04/18/17 01:37 Dose: 0.5 mg Sodium Chloride (Sodium Chloride 0.9%) 1,000 mls @ 100 mls/hr IV .Q10H [facility] Last Admin: 04/19/17 10:02 Dose: 100 mls/hr Piperacillin Sod/Tazobactam Sod (Zosyn 2.25 Gm Iv Premix) 2.25 gm in 50 mls @ 100 mls/hr IVPB Q6H [facility] Last Admin: 04/19/17 05:42 Dose: 100 mls/hr Ketorolac Tromethamine (Toradol) 30 mg IVP Q6 PRN PRN Reason: moderate pain Last Admin: 04/19/17 00:54 Dose: 30 mg Ondansetron HCl (Zofran Inj) 4 mg IVP Q4 PRN PRN Reason: Nausea/Vomiting Pantoprazole Sodium (Protonix Inj) 40 mg IVP DAILY [facility] Last Admin: 04/19/17 10:05 Dose: 40 mg - Labs Labs: 04/19/17 08:07 04/19/17 08:07 - Constitutional Appears: Non-toxic, No Acute Distress - Respiratory Exam Respiratory Exam: absent: Accessory Muscle Use, Respiratory Distress - Cardiovascular Exam Cardiovascular Exam: REGULAR RHYTHM - GI/Abdominal Exam GI & Abdominal Exam: Soft, Tenderness (post-op and appropriate). absent: Distended, Firm Additional comments: incision c/d/i - Extremities Exam Extremities Exam: absent: Pedal Edema - Neurological Exam Neurological Exam: Alert, Awake, Oriented x3 - Psychiatric Exam Psychiatric exam: Normal Affect, Normal Mood - Skin Skin Exam: Normal Color, Warm Assessment and Plan - Assessment and Plan (Free Text) Assessment: 36F post-op from [facility] in outside hospital Plan: abdominal pain resolved adv diet as tolerated simethicon for gas discomfort no surgical intervention please reconsult if necessary d/w Dr Maurice Chadwick, PGY2 <Clinton Richards B - Last Filed: 04/19/17 22:33> Objective - Vital Signs/Intake and Output Vital Signs (last 24 hours): Temp Pulse Resp BP Pulse Ox 98.1 F 95 H 20 134/75 93 L 04/19/17 16:00 04/19/17 16:00 04/19/17 16:00 04/19/17 16:00 04/19/17 16:00 Intake and Output: 04/19/17 04/20/17 18:59 06:59 Intake Total 1280 Balance 1280 - Medications Medications: Current Medications Hydromorphone HCl (Dilaudid) 0.5 mg IVP Q4H PRN PRN Reason: Pain, moderate (4-7) Last Admin: 04/18/17 01:37 Dose: 0.5 mg Sodium Chloride (Sodium Chloride 0.9%) 1,000 mls @ 100 mls/hr IV .Q10H [facility] Last Admin: 04/19/17 21:47 Dose: 100 mls/hr Piperacillin Sod/Tazobactam Sod (Zosyn 2.25 Gm Iv Premix) 2.25 gm in 50 mls @ 100 mls/hr IVPB Q6H [facility] Last Admin: 04/19/17 18:44 Dose: 100 mls/hr Ondansetron HCl (Zofran Inj) 4 mg IVP Q4 PRN PRN Reason: Nausea/Vomiting Pantoprazole Sodium (Protonix Inj) 40 mg IVP DAILY [facility] Last Admin: 04/19/17 10:05 Dose: 40 mg Simethicone (Mylicon Chew Tab) 80 mg PO DAILY [facility] Last Admin: 04/19/17 12:14 Dose: Not Given - Labs Labs: 04/19/17 08:07 04/19/17 08:07 Attending/Attestation - Attestation I have personally seen and examined this patient.: Yes I have fully participated in the care of the patient.: Yes I have reviewed all pertinent clinical information, including history, physical exam and plan: Yes Notes (Text): 04/19/17 22:32 Pt was seen and examined at bedside on 04/19/17 Agree with above note and assessment. Pt with abdominal pain s/p Lap Cholecystectomy, UTI Pt is improved clinically No need for any surgical intervention at present F/u with PMD Plan d.w pt in detail Risk and benefit explained in detail.
[2017-04-19] MEDS ORDERED: Simethicone 80 mg Chewtab PO SCH (10:45)
--- NOTE | 2017-04-19 14:30 | CP.PCM.PN ---
Subjective - Date & Time of Evaluation Date of Evaluation: 04/19/17 Time of Evaluation: 14:29 - Subjective Subjective: CC: Follow up abdominal pain Pain resolved. No dysuria. No fevers Cultures negative Objective - Vital Signs/Intake and Output Vital Signs (last 24 hours): Temp Pulse Resp BP Pulse Ox 98.4 F 76 20 128/78 98 04/19/17 08:00 04/19/17 08:00 04/19/17 08:00 04/19/17 08:00 04/19/17 08:00 Intake and Output: 04/19/17 04/19/17 06:59 18:59 Intake Total 1280 1280 Balance 1280 1280 - Medications Medications: Current Medications Hydromorphone HCl (Dilaudid) 0.5 mg IVP Q4H PRN PRN Reason: Pain, moderate (4-7) Last Admin: 04/18/17 01:37 Dose: 0.5 mg Sodium Chloride (Sodium Chloride 0.9%) 1,000 mls @ 100 mls/hr IV .Q10H [facility] Last Admin: 04/19/17 10:02 Dose: 100 mls/hr Piperacillin Sod/Tazobactam Sod (Zosyn 2.25 Gm Iv Premix) 2.25 gm in 50 mls @ 100 mls/hr IVPB Q6H [facility] Last Admin: 04/19/17 12:17 Dose: 100 mls/hr Ketorolac Tromethamine (Toradol) 30 mg IVP Q6 PRN PRN Reason: moderate pain Last Admin: 04/19/17 00:54 Dose: 30 mg Ondansetron HCl (Zofran Inj) 4 mg IVP Q4 PRN PRN Reason: Nausea/Vomiting Pantoprazole Sodium (Protonix Inj) 40 mg IVP DAILY [facility] Last Admin: 04/19/17 10:05 Dose: 40 mg Simethicone (Mylicon Chew Tab) 80 mg PO DAILY [facility] Last Admin: 04/19/17 12:14 Dose: Not Given - Labs Labs: 04/19/17 08:07 04/19/17 08:07 - Constitutional Appears: Well, No Acute Distress - Head Exam Head Exam: NORMOCEPHALIC - Eye Exam Eye Exam: absent: Scleral icterus - Respiratory Exam Respiratory Exam: Clear to Ausculation Bilateral - Cardiovascular Exam Cardiovascular Exam: REGULAR RHYTHM - GI/Abdominal Exam GI & Abdominal Exam: Soft. absent: Tenderness, Organomegaly - Back Exam Back Exam: NORMAL INSPECTION. absent: CVA tenderness (L), CVA tenderness (R) Assessment and Plan (1) Abdominal pain Assessment & Plan: Resolved with antibiotics. Likely infection. No further GI workup planned. Will sign off. Contact us again if needed. Status: Acute
--- NOTE | 2017-04-19 18:35 | CP.PCM.PN ---
<Paris López - Last Filed: 04/19/17 19:16> Subjective - Date & Time of Evaluation Date of Evaluation: 04/19/17 Time of Evaluation: 08:00 - Subjective Subjective: PGY1- Medicine Note, Dr. Ferguson's Service Patient seen and examined at bedside and in no acute distress. Patient states abdominal pain is much better and rates her pain as a 1/10. Patient had a normal bm yesterday and today. Patient very hungry and switched to regular diet. Objective - Vital Signs/Intake and Output Vital Signs (last 24 hours): Temp Pulse Resp BP Pulse Ox 98.1 F 95 H 20 134/75 93 L 04/19/17 16:00 04/19/17 16:00 04/19/17 16:00 04/19/17 16:00 04/19/17 16:00 Intake and Output: 04/19/17 04/19/17 06:59 18:59 Intake Total 1280 1280 Balance 1280 1280 - Medications Medications: Current Medications Hydromorphone HCl (Dilaudid) 0.5 mg IVP Q4H PRN PRN Reason: Pain, moderate (4-7) Last Admin: 04/18/17 01:37 Dose: 0.5 mg Sodium Chloride (Sodium Chloride 0.9%) 1,000 mls @ 100 mls/hr IV .Q10H [facility] Last Admin: 04/19/17 10:02 Dose: 100 mls/hr Piperacillin Sod/Tazobactam Sod (Zosyn 2.25 Gm Iv Premix) 2.25 gm in 50 mls @ 100 mls/hr IVPB Q6H [facility] Last Admin: 04/19/17 12:17 Dose: 100 mls/hr Ketorolac Tromethamine (Toradol) 30 mg IVP Q6 PRN PRN Reason: moderate pain Last Admin: 04/19/17 00:54 Dose: 30 mg Ondansetron HCl (Zofran Inj) 4 mg IVP Q4 PRN PRN Reason: Nausea/Vomiting Pantoprazole Sodium (Protonix Inj) 40 mg IVP DAILY [facility] Last Admin: 04/19/17 10:05 Dose: 40 mg Simethicone (Mylicon Chew Tab) 80 mg PO DAILY [facility] Last Admin: 04/19/17 12:14 Dose: Not Given - Labs Labs: 04/19/17 08:07 04/19/17 08:07 - Constitutional Appears: Well, Non-toxic, No Acute Distress - Head Exam Head Exam: ATRAUMATIC, NORMAL INSPECTION, NORMOCEPHALIC - Eye Exam Eye Exam: EOMI, Normal appearance, PERRL Pupil Exam: NORMAL ACCOMODATION, PERRL - ENT Exam ENT Exam: Mucous Membranes Moist, Normal Exam - Neck Exam Neck Exam: Full ROM, Normal Inspection. absent: Lymphadenopathy - Respiratory Exam Respiratory Exam: Clear to Ausculation Bilateral, NORMAL BREATHING PATTERN. absent: Rales, Rhonchi, Wheezes, Stridor - Cardiovascular Exam Cardiovascular Exam: REGULAR RHYTHM, RRR, +S1, +S2. absent: Rubs, Murmur - GI/Abdominal Exam GI & Abdominal Exam: Soft, Normal Bowel Sounds. absent: Firm, Guarding, Tenderness Additional comments: incision sites clean, dry. heeling well. - Extremities Exam Extremities Exam: Full ROM, Normal Capillary Refill, Normal Inspection. absent : Joint Swelling, Pedal Edema - Back Exam Back Exam: NORMAL INSPECTION - Neurological Exam Neurological Exam: Alert, Awake, Oriented x3 - Psychiatric Exam Psychiatric exam: Normal Affect, Normal Mood - Skin Skin Exam: Normal Color, Warm Assessment and Plan - Assessment and Plan (Free Text) Assessment: Abdominal pain Secondary to nephrolithiasis vs GI issue CT showed small amount of pneumoperitoneum, no abscess and small amount of fluid in cul de sac in gallbladder fossa per report. 04/19: Patient's diet advanced to regular diet NS@100ml/hr. Zosyn q6H. Surgery Dr. Richards consulted, help appreciated- surgery signed off, no surgical intervention. GI Dr. Resendiz consulted, help appreciated. - Dr. Resendiz signed off, no further GI workup anticipated. Morphine 4mg IVP q4H PRN and Toradol 30mg IVP q6H PRN. Prophylactic measure Protonix, SCD. <Brendon Ferguson - Last Filed: 04/20/17 09:23> Objective - Vital Signs/Intake and Output Vital Signs (last 24 hours): Temp Pulse Resp BP Pulse Ox 97.8 F 60 20 150/90 100 04/20/17 07:28 04/20/17 07:28 04/20/17 07:28 04/20/17 07:28 04/20/17 07:28 Intake and Output: 04/20/17 04/20/17 06:59 18:59 Intake Total 1160 1000 Balance 1160 1000 - Medications Medications: Current Medications Hydromorphone HCl (Dilaudid) 0.5 mg IVP Q4H PRN PRN Reason: Pain, moderate (4-7) Last Admin: 04/20/17 05:48 Dose: 0.5 mg Sodium Chloride (Sodium Chloride 0.9%) 1,000 mls @ 100 mls/hr IV .Q10H [facility] Last Admin: 04/20/17 07:02 Dose: Not Given Piperacillin Sod/Tazobactam Sod (Zosyn 2.25 Gm Iv Premix) 2.25 gm in 50 mls @ 100 mls/hr IVPB Q6H [facility] Last Admin: 04/20/17 05:50 Dose: 100 mls/hr Ondansetron HCl (Zofran Inj) 4 mg IVP Q4 PRN PRN Reason: Nausea/Vomiting Pantoprazole Sodium (Protonix Inj) 40 mg IVP DAILY [facility] Last Admin: 04/19/17 10:05 Dose: 40 mg Potassium Chloride (K-Dur 20 Meq Er Tab) 40 meq PO ONCE ONE Stop: 04/20/17 09:18 Simethicone (Mylicon Chew Tab) 80 mg PO DAILY [facility] Last Admin: 04/20/17 05:35 Dose: 80 mg - Labs Labs: 04/20/17 08:37 04/20/17 08:37
[2017-04-20] MEDS: HYDROmorphone 0.5 mg/0.5 ml ISec IVP PRN ×3 (01:43→10:10)
[2017-04-20] MEDS: Simethicone 80 mg Chewtab PO SCH ×2 (05:35→10:39)
[2017-04-20] MEDS: Piperacill/Tazo 2.25gm in Dex 2.25 GM/50 ML BAG IVPB SCH ×4 (05:50→18:22)
[2017-04-20] MEDS: Sodium Chloride 0.9% 1,000 ML IV SCH ×3 (07:02→19:44)
[2017-04-20] MEDS ORDERED: Alum-Mag Hydrox-Simethicone Susp (30 mL) PO STA (07:48)
[2017-04-20] MEDS ORDERED: HYDROmorphone 0.5 mg/0.5 ml ISec IVP STA (08:01)
[2017-04-20 08:46] LABS: BASO % 0.3 % (0.0-2.0); EOS % 0.4 % (0.0-4.0); HEMATOCRIT 34.7 % (34.0-47.0); LYMPH # 0.9 K/uL (1.0-4.3); LYMPH % 6.9 % (20.0-40.0); MEAN CELL VOLUME 80.6 fL (81.0-99.0); MEAN CORPUSCULAR HEMOGLOBIN 25.8 pg (27.0-31.0); MEAN PLATELET VOLUME 8.9 fL (7.2-11.7); MONO # 0.5 K/uL (0.0-0.8); MONO % 3.7 % (0.0-10.0); PLATELET COUNT 287 K/uL (130-400); RED CELL DISTRIBUTION WIDTH 13.3 % (11.5-14.5); WHITE BLOOD COUNT 13.1 K/uL (4.8-10.8)
[2017-04-20 09:00] LABS: CHLORIDE 102 mmol/L (98-107)
[2017-04-20 09:01] LABS: POTASSIUM 3.3 mmol/L (3.6-5.2); SODIUM 136 mmol/L (132-148)
[2017-04-20 09:03] LABS: GFR AFRICAN-AMERICAN > 60
[2017-04-20 09:04] LABS: ALKALINE PHOSPHATASE 70 U/L (38-126); ALT/SGPT 46 U/L (9-52); AST/SGOT 27 U/L (14-36); BILIRUBIN,TOTAL 0.6 mg/dL (0.2-1.3); BLOOD UREA NITROGEN 5 mg/dL (7-17); CALCIUM 8.2 mg/dl (8.6-10.4); CARBON DIOXIDE 23 mmol/L (22-30); GLUCOSE,RANDOM 126 mg/dL (65-105); TOTAL PROTEIN 7.1 g/dL (6.3-8.3)
[2017-04-20 09:15] LABS: NEUTROPHIL 89 % (50-75); TOTAL CELLS COUNTED 100
[2017-04-20] MEDS ORDERED: Potassium Chloride 20 mEq ER Tab PO ONE (09:17)
[2017-04-20] MEDS ORDERED: HYDROmorphone 0.5 mg/0.5 ml ISec IVP ONE (11:45)
[2017-04-20 12:59] LABS: RBC URINE 2 /hpf (0-3); URINE BILIRUBIN NEGATIVE (NEGATIVE); URINE BLOOD 1+ (NEGATIVE); URINE COLOR Straw (YELLOW); URINE GLUCOSE (UA) NORMAL (Normal); URINE KETONE NEGATIVE (NEGATIVE); URINE LEUKOCYTE ESTERASE NEG Leu/uL (Negative); URINE PROTEIN NEGATIVE (NEGATIVE); URINE UROBILINOGEN NORMAL mg/dL (0.2-1.0); WBC URINE < 1 /hpf (0-5)
[2017-04-20] MEDS ORDERED: Iohexol 240 (50 ml) PO ONE ×2 (13:15)
--- NOTE | 2017-04-20 16:23 | CP.PCM.PN ---
<Paris López - Last Filed: 04/20/17 16:17> Subjective - Date & Time of Evaluation Date of Evaluation: 04/20/17 Time of Evaluation: 07:00 - Subjective Subjective: PGY1- Medicine Note, Dr. Ferguson's Service Patient seen and examined at bedside. Patient moaning in pain and states that her abdomen started hurting after she ate some of an apple around 1am. Patient' s pain is constant and radiates to the left shoulder. Patient has no headache, chest pain, shortness of breath, nausea, vomiting, constipation, or diarrhea. Objective - Vital Signs/Intake and Output Vital Signs (last 24 hours): Temp Pulse Resp BP Pulse Ox 97.8 F 60 20 150/90 100 04/20/17 07:28 04/20/17 07:28 04/20/17 07:28 04/20/17 07:28 04/20/17 07:28 Intake and Output: 04/20/17 04/20/17 06:59 18:59 Intake Total 1160 1000 Balance 1160 1000 - Medications Medications: Current Medications Hydromorphone HCl (Dilaudid) 1 mg IVP Q3H PRN PRN Reason: Pain, severe (8-10) Sodium Chloride (Sodium Chloride 0.9%) 1,000 mls @ 100 mls/hr IV .Q10H [facility] [place] Last Admin: 04/20/17 15:29 Dose: 100 mls/hr Piperacillin Sod/Tazobactam Sod (Zosyn 2.25 Gm Iv Premix) 2.25 gm in 50 mls @ 100 mls/hr IVPB Q6H [facility] [place] Last Admin: 04/20/17 12:13 Dose: 100 mls/hr Ondansetron HCl (Zofran Inj) 4 mg IVP Q4 PRN PRN Reason: Nausea/Vomiting Pantoprazole Sodium (Protonix Inj) 40 mg IVP DAILY [facility] [place] Last Admin: 04/20/17 10:10 Dose: 40 mg Simethicone (Mylicon Chew Tab) 80 mg PO DAILY [facility] [place] Last Admin: 04/20/17 10:39 Dose: Not Given - Labs Labs: 04/20/17 08:37 04/20/17 08:37 - Constitutional Appears: In Acute Distress - Head Exam Head Exam: ATRAUMATIC, NORMAL INSPECTION, NORMOCEPHALIC - Eye Exam Eye Exam: EOMI, Normal appearance, PERRL - ENT Exam ENT Exam: Mucous Membranes Moist, Normal Exam - Neck Exam Neck Exam: Full ROM, Normal Inspection. absent: Lymphadenopathy - Respiratory Exam Respiratory Exam: Clear to Ausculation Bilateral, NORMAL BREATHING PATTERN. absent: Rhonchi, Wheezes, Respiratory Distress, Stridor - Cardiovascular Exam Cardiovascular Exam: REGULAR RHYTHM, RRR, +S1, +S2. absent: Gallop, Rubs, Murmur - GI/Abdominal Exam GI & Abdominal Exam: Soft, Tenderness, Normal Bowel Sounds. absent: Distended, Firm Additional comments: epigastric tenderness - Extremities Exam Extremities Exam: Full ROM, Normal Capillary Refill, Normal Inspection. absent : Joint Swelling, Pedal Edema - Back Exam Back Exam: NORMAL INSPECTION - Neurological Exam Neurological Exam: Alert, Awake, Oriented x3 - Psychiatric Exam Psychiatric exam: Normal Affect, Normal Mood - Skin Skin Exam: Normal Color, Warm Assessment and Plan - Assessment and Plan (Free Text) Assessment: Abdominal pain Secondary to nephrolithiasis vs GI issue 04/20: Patient abdominal pain increasing. Patient's diet switch to clear liquids , 1 mg dilaudid q3h, follow up CT with contrast of Chest, Abdomen, Pelvis Stat EKG ordered: NSR at 79bpm Troponin negative NS@100ml/hr. Zosyn q6H. 04/19: Patient's diet advanced to regular diet CT showed small amount of pneumoperitoneum, no abscess and small amount of fluid in cul de sac in gallbladder fossa per report. Surgery Dr. Richards consulted, help appreciated- surgery signed off, no surgical intervention. GI Dr. Resendiz consulted, help appreciated. - Dr. Resendiz signed off, no further GI workup anticipated. Morphine 4mg IVP q4H PRN and Toradol 30mg IVP q6H PRN. Hypokalemia 04/20: Potassium at 3.3, KDUR 40 given monitor Prophylactic measure Protonix, SCD. <Brendon Ferguson - Last Filed: 04/20/17 18:20> Objective - Vital Signs/Intake and Output Vital Signs (last 24 hours): Temp Pulse Resp BP Pulse Ox 98.1 F 75 20 132/84 100 04/20/17 15:00 04/20/17 15:00 04/20/17 15:00 04/20/17 15:00 04/20/17 15:00 Intake and Output: 04/20/17 04/20/17 06:59 18:59 Intake Total 1160 2150 Balance 1160 2150 - Medications Medications: Current Medications Hydromorphone HCl (Dilaudid) 1 mg IVP Q3H PRN PRN Reason: Pain, severe (8-10) Sodium Chloride (Sodium Chloride 0.9%) 1,000 mls @ 100 mls/hr IV .Q10H [facility] [place] Last Admin: 04/20/17 15:29 Dose: 100 mls/hr Piperacillin Sod/Tazobactam Sod (Zosyn 2.25 Gm Iv Premix) 2.25 gm in 50 mls @ 100 mls/hr IVPB Q6H [facility] [place] Last Admin: 04/20/17 12:13 Dose: 100 mls/hr Ondansetron HCl (Zofran Inj) 4 mg IVP Q4 PRN PRN Reason: Nausea/Vomiting Pantoprazole Sodium (Protonix Inj) 40 mg IVP DAILY [facility] [place] Last Admin: 04/20/17 10:10 Dose: 40 mg Simethicone (Mylicon Chew Tab) 80 mg PO DAILY [facility] [place] Last Admin: 04/20/17 10:39 Dose: Not Given - Labs Labs: 04/20/17 08:37 04/20/17 08:37 Attending/Attestation - Attestation I have personally seen and examined this patient.: Yes I have fully participated in the care of the patient.: Yes I have reviewed all pertinent clinical information, including history, physical exam and plan: Yes Notes (Text): 04/20/17 18:18 Medical attending: Patient was seen and examined by me, agree with the above note by medical translator. In this morning we saw her family members are present. The patient explains that overnight she did well but then she proceeded to eat some food and later on at night started having severe epigastric pain that's persisted since earlier in the morning. Next when she reports that she had a normal-appearing bowel movement yesterday and was doing well She says that the epigastric pain seems to radiate into her back shoulder, she is also short of breath as well we went ahead and ordered a CTA of the chest abdomen and pelvis are concern was possible pulmonary embolism, the results showed that this was not the case. Also troponin was ordered this to was negative we increased her pain medication as well Patient was moved back to clear liquid diet Thank you very much,
--- NOTE | 2017-04-20 16:58 | CT ---
PROCEDURE: CT Chest with contrast (Pulmonary Angiogram) and CT of the abdomen and pelvis HISTORY: rule out PE. Right-sided abdominal pain, status post laparoscopic cholecystectomy. COMPARISON: CT abdomen/pelvis 04/17/2017 TECHNIQUE: Axial computed tomography images were obtained of the chest in the pulmonary arterial phase of enhancement. Coronal and sagittal reformatted images were created and reviewed. Intravenous contrast dose: 100 mL Visipaque 320 Radiation dose: Total exam DLP = 590.35 mGy-cm. This CT exam was performed using one or more of the following dose reduction techniques: Automated exposure control, adjustment of the mA and/or kV according to patient size, and/or use of iterative reconstruction technique. FINDINGS: PULMONARY ARTERIES: Unremarkable. No pulmonary embolism. AORTA: No acute findings. No thoracic aortic aneurysm. LUNGS: Minimal bilateral lower lobe subsegmental atelectasis. PLEURAL SPACES: Unremarkable. No effusion or pneuomothorax. HEART: Unremarkable. No cardiomegaly. No significant pericardial effusion. LYMPH NODES: No lymphadenopathy. BONES, CHEST WALL: Unremarkable. No fracture or destructive lesion OTHER FINDINGS: Unremarkable. CT abdomen/pelvis: The liver is normal in size, contour and attenuation. There is no mass. There is no biliary dilatation. The patient is status post cholecystectomy. There is small amount of fluid in the gallbladder fossa. The spleen is normal in size, contour and attenuation. The pancreas is normal in appearance. There is no evidence of mass or peripancreatic fluid collection. There is no adrenal mass. There is no renal mass, calculus or hydronephrosis. There is no retroperitoneal or pelvic lymphadenopathy. There are mildly dilated veins in the left hemipelvis which may correlate with pelvic congestion syndrome. There is minimal ascites. There is fluid seen about the liver, not evident on prior CT examination. Fluid is seen in the right pericolic gutter. There is mild increase in the extent of fluid in the pelvis when compared to the prior examination. There is very mild mild pneumoperitoneum. When compared to the prior examination, the extent of pneumoperitoneum is essentially unchanged. The uterus is normal in appearance. The urinary bladder is unremarkable. The osseous structures are unremarkable. IMPRESSION: No evidence of pulmonary embolism. Minimal bilateral lower lobe subsegmental atelectasis. No pulmonary infiltrate or pleural effusion. Very mild ascites, increased from prior CT examination of 04/17/2017. Persistent mild pneumoperitoneum. There is no evidence of increased pneumoperitoneum when compared to the prior examination but the pneumoperitoneum has not resolved, approximately 9 days status post laparoscopic cholecystectomy.
[2017-04-20] MEDS: HYDROmorphone 1 mg/ml ISec IVP PRN ×2 (18:16→21:14)
[2017-04-20 19:41] LABS: ABG ALLEN TEST P; DRAW SITE LR
[2017-04-20 20:42] LABS: ALB/GLOB RATIO 1.1 (1.0-2.1); BILIRUBIN,DIRECT 0.6 mg/dL (0.0-0.4); BILIRUBIN,TOTAL 0.9 mg/dL (0.2-1.3); TOTAL PROTEIN 7.3 g/dL (6.3-8.3)
[2017-04-21] MEDS: Piperacill/Tazo 2.25gm in Dex 2.25 GM/50 ML BAG IVPB SCH ×3 (00:12→12:09)
[2017-04-21] MEDS: HYDROmorphone 1 mg/ml ISec IVP PRN ×2 (00:21→03:32)
[2017-04-21] MEDS: Sodium Chloride 0.9% 1,000 ML IV SCH ×2 (05:28→05:57)
[2017-04-21 07:32] LABS: BASO % 0.4 % (0.0-2.0); EOS # 0.5 K/uL (0.0-0.7); EOS % 4.5 % (0.0-4.0); HEMATOCRIT 35.1 % (34.0-47.0); LYMPH # 1.2 K/uL (1.0-4.3); LYMPH % 11.3 % (20.0-40.0); MEAN CELL VOLUME 80.4 fL (81.0-99.0); MEAN CORPUSCULAR HEMOGLOBIN 26.3 pg (27.0-31.0); MEAN CORPUSCULAR HGB CONC 32.6 g/dL (33.0-37.0); MEAN PLATELET VOLUME 8.3 fL (7.2-11.7); MONO # 0.7 K/uL (0.0-0.8); MONO % 6.3 % (0.0-10.0); RED CELL DISTRIBUTION WIDTH 13.3 % (11.5-14.5); WHITE BLOOD COUNT 10.7 K/uL (4.8-10.8)
[2017-04-21 07:46] LABS: CHLORIDE 104 mmol/L (98-107)
[2017-04-21 07:47] LABS: POTASSIUM 3.7 mmol/L (3.6-5.2); SODIUM 139 mmol/L (132-148)
[2017-04-21 07:49] LABS: GFR AFRICAN-AMERICAN > 60
[2017-04-21 07:50] LABS: ALKALINE PHOSPHATASE 83 U/L (38-126); ALT/SGPT 55 U/L (9-52); AST/SGOT 30 U/L (14-36); BILIRUBIN,TOTAL 0.8 mg/dL (0.2-1.3); BLOOD UREA NITROGEN 6 mg/dL (7-17); CALCIUM 8.6 mg/dl (8.6-10.4); CARBON DIOXIDE 24 mmol/L (22-30); GLUCOSE,RANDOM 121 mg/dL (65-105)
[2017-04-21] MEDS: Simethicone 80 mg Chewtab PO SCH (10:10)
--- NOTE | 2017-04-21 11:24 | NM ---
PROCEDURE: Nuclear Medicine Hepatobiliary Scan HISTORY: Recent laparoscopic cholecystectomy approximately 10 days ago presenting with abdominal pain. COMPARISON: None. TECHNIQUE: 5.0 mCi of technetium 99m Mebrofenin was administered intravenously. Planar images of the abdomen were obtained at 5 min intervals to 60 mins. Delayed images were also obtained. FINDINGS: LIVER: Timely and homogenous uptake. COMMON BILE DUCT: identified at 15 mins. GALLBLADDER: Prior cholecystectomy. No abnormal accumulation of radionuclide in the gallbladder fossa. No evidence of gallbladder leak SMALL BOWEL: Identified at 20 mins. IMPRESSION: Status post laparoscopic cholecystectomy approximately 10 days ago without evidence of bile leak.
--- NOTE | 2017-04-21 11:38 | CP.PCM.PN ---
Subjective - Date & Time of Evaluation Date of Evaluation: 04/21/17 Time of Evaluation: 11:35 - Subjective Subjective: Abdominal pain Epigastric pain recurred after eating ice cream. S/P Cholecystectomy. Underwent HIDA today, results pending. Objective - Vital Signs/Intake and Output Vital Signs (last 24 hours): Temp Pulse Resp BP Pulse Ox 98.0 F 72 20 146/95 H 98 04/21/17 08:30 04/21/17 08:30 04/21/17 08:30 04/21/17 08:30 04/21/17 08:30 Intake and Output: 04/21/17 04/21/17 06:59 18:59 Intake Total 2150 Output Total 700 Balance 1450 - Medications Medications: Current Medications Hydromorphone HCl (Dilaudid) 1 mg IVP Q3H PRN PRN Reason: Pain, severe (8-10) Last Admin: 04/21/17 03:32 Dose: 1 mg Piperacillin Sod/Tazobactam Sod (Zosyn 2.25 Gm Iv Premix) 2.25 gm in 50 mls @ 100 mls/hr IVPB Q6H [facility] Last Admin: 04/21/17 05:59 Dose: 100 mls/hr Imipenem/Cilastatin Sodium 500 (mg/ Sodium Chloride) 100 mls @ 100 mls/hr IVPB Q6H [facility] Last Admin: 04/21/17 10:09 Dose: 100 mls/hr Vancomycin HCl 1 gm/ Sodium (Chloride) 250 mls @ 166.7 mls/hr IVPB Q24H [facility] Last Admin: 04/20/17 21:10 Dose: 166.7 mls/hr Sodium Chloride (Sodium Chloride 0.9%) 1,000 mls @ 100 mls/hr IV .Q10H [facility] Last Admin: 04/21/17 05:57 Dose: 100 mls/hr Ketorolac Tromethamine (Toradol) 30 mg IVP Q6 [facility] Stop: 04/22/17 21:46 Last Admin: 04/21/17 05:53 Dose: 30 mg Ondansetron HCl (Zofran Inj) 4 mg IVP Q4 PRN PRN Reason: Nausea/Vomiting Pantoprazole Sodium (Protonix Inj) 40 mg IVP DAILY [facility] Last Admin: 04/21/17 10:10 Dose: 40 mg Simethicone (Mylicon Chew Tab) 80 mg PO DAILY [facility] Last Admin: 04/21/17 10:10 Dose: 80 mg - Labs Labs: 04/21/17 07:18 04/21/17 07:18 - Constitutional Appears: No Acute Distress - Head Exam Head Exam: NORMOCEPHALIC - Eye Exam Eye Exam: absent: Scleral icterus - Respiratory Exam Respiratory Exam: NORMAL BREATHING PATTERN - Cardiovascular Exam Cardiovascular Exam: REGULAR RHYTHM - GI/Abdominal Exam GI & Abdominal Exam: Soft, Tenderness. absent: Guarding, Mass, Organomegaly Assessment and Plan (1) Abdominal pain Assessment & Plan: Epigastric pain, recurrent S/P Cholecystectomy. CT essentially nondiagnostic. Rec; PPI. EGD in AM. Check HIDA results when available. Status: Acute
--- NOTE | 2017-04-21 13:39 | CARD ---
APPROVED REPORT EKG Measurement Heart [id number] IA [id number] [id number] <Conclusion> Normal sinus rhythm with sinus arrhythmia Normal ECG
[2017-04-21 16:18] VITALS: BP 147/90; PULSE 82; TEMP 98.2; O2SAT 99
--- NOTE | 2017-04-21 18:00 | CP.PCM.DIS ---
<Paris López - Last Filed: 04/21/17 18:20> Provider - Provider Date of Admission: 04/17/17 17:28 Attending physician: Kody Dooley MD Primary care physician: None Consults: Dr. Resendiz (GI) Dr. Richards (surgery) Time Spent in preparation of Discharge (in minutes): 45 Diagnosis - Discharge Diagnosis (1) Abdominal pain Status: Acute Comment: resolved. CT of chest, abdomen, pelvis, negative, HIDA scan negative, ABGs normal (2) Status post cholecystectomy Status: Acute Comment: please follow up with surgeon at [facility] Hospital Course - Lab Results Lab Results: Micro Results 04/20/17 14:00 Urine,Clean Catch Urine Culture - Final No Growth (<1,000 CFU/ML) 04/17/17 18:15 Blood Blood Culture - Preliminary NO GROWTH AFTER 3 DAYS 04/17/17 17:40 Blood Blood Culture - Preliminary NO GROWTH AFTER 3 DAYS 04/17/17 Unknown Urine Urine Culture - Final 10-50,000 CFU/ML. MULTIPLE SPECIES. PROBABLE CONTAMINATION. Most Recent Lab Values WBC 10.7 K/uL (4.8-10.8) 04/21/17 07:18 RBC 4.37 Mil/uL (3.80-5.20) 04/21/17 07:18 Hgb 11.5 g/dL (11.0-16.0) 04/21/17 07:18 Hct 35.1 % (34.0-47.0) 04/21/17 07:18 MCV 80.4 fL (81.0-99.0) L 04/21/17 07:18 MCH 26.3 pg (27.0-31.0) L 04/21/17 07:18 MCHC 32.6 g/dL (33.0-37.0) L 04/21/17 07:18 RDW 13.3 % (11.5-14.5) 04/21/17 07:18 Plt Count 312 K/uL (130-400) 04/21/17 07:18 MPV 8.3 fL (7.2-11.7) 04/21/17 07:18 Neut % (Auto) 77.5 % (50.0-75.0) H 04/21/17 07:18 Lymph % (Auto) 11.3 % (20.0-40.0) L 04/21/17 07:18 [place] % (Auto) 6.3 % (0.0-10.0) 04/21/17 07:18 Eos % (Auto) 4.5 % (0.0-4.0) H 04/21/17 07:18 Baso % (Auto) 0.4 % (0.0-2.0) 04/21/17 07:18 Neut # 8.3 K/uL (1.8-7.0) H 04/21/17 07:18 Lymph # 1.2 K/uL (1.0-4.3) 04/21/17 07:18 [place] # 0.7 K/uL (0.0-0.8) 04/21/17 07:18 Eos # 0.5 K/uL (0.0-0.7) 04/21/17 07:18 Baso # 0.0 K/uL (0.0-0.2) 04/21/17 07:18 Neutrophils % (Manual) 89 % (50-75) H 04/20/17 08:37 Band Neutrophils % 2 % (0-2) 04/17/17 14:38 Lymphocytes % (Manual) 7 % (20-40) L 04/20/17 08:37 Monocytes % (Manual) 4 % (0-10) 04/20/17 08:37 Eosinophils % (Manual) 1 % (0-4) 04/17/17 14:38 Platelet Estimate Normal (NORMAL) 04/20/17 08:37 RBC Morphology Normal 04/17/17 14:38 Hypochromasia (manual) Slight 04/20/17 08:37 Poikilocytosis (manual Slight 04/20/17 08:37 Anisocytosis (manual) Slight 04/20/17 08:37 Puncture Site Lr 04/20/17 19:30 pCO2 29 mm/Hg (35-45) L 04/20/17 19:30 pO2 152 mm/Hg (80-100) H 04/20/17 19:30 HCO3 19.8 mmol/L (21-28) L 04/20/17 19:30 ABG pH 7.38 (7.35-7.45) 04/20/17 19:30 ABG Total CO2 18.1 mmol/L (22-28) L 04/20/17 19:30 ABG O2 Saturation 100.0 % (95-98) H 04/20/17 19:30 ABG Base Excess -6.6 mmol/L (-2.0-3.0) L 04/20/17 19:30 Regulo Test P 04/20/17 19:30 ABG Potassium 2.3 mmol/L (3.6-5.2) L* 04/20/17 19:30 Sodium 144.0 mmol/l (132-148) 04/20/17 19:30 Chloride 117.0 mmol/L (98-107) H 04/20/17 19:30 Glucose 107 mg/dl (65-105) H 04/20/17 19:30 Lactate 0.6 mmol/L (0.7-2.1) L 04/20/17 19:30 Liter Flow 2.0 04/20/17 19:30 Crit Value Called To Dr dooley 04/20/17 19:30 Crit Value Called By rt 04/20/17 19:30 Crit Value Read Back Y 04/20/17 19:30 Blood Gas Notified Time 19404/20/17 19:30 Sodium 139 mmol/L (132-148) 04/21/17 07:18 Potassium 3.7 mmol/L (3.6-5.2) 04/21/17 07:18 Chloride 104 mmol/L (98-107) 04/21/17 07:18 Carbon Dioxide 24 mmol/L (22-30) 04/21/17 07:18 Anion Gap 14 (10-20) 04/21/17 07:18 BUN 6 mg/dL (7-17) L 04/21/17 07:18 Creatinine 0.6 MG/DL (0.7-1.2) L 04/21/17 07:18 Est GFR ( Amer) > 60 04/21/17 07:18 Est GFR (Non-Af Amer) > 60 04/21/17 07:18 Random Glucose 121 mg/dL (65-105) H 04/21/17 07:18 Lactic Acid 1.8 mmol/L (0.7-2.1) 04/17/17 18:46 Calcium 8.6 mg/dl (8.6-10.4) 04/21/17 07:18 Total Bilirubin 0.8 mg/dL (0.2-1.3) 04/21/17 07:18 Direct Bilirubin 0.6 mg/dL (0.0-0.4) H 04/20/17 08:10 AST 30 U/L (14-36) 04/21/17 07:18 ALT 55 U/L (9-52) H 04/21/17 07:18 Alkaline Phosphatase 83 U/L (38-126) 04/21/17 07:18 Total Creatine Kinase 57 U/L (30-135) 04/20/17 12:32 CK-MB (Mass) < 0.22 ng/mL (0.0-3.38) 04/20/17 12:32 Troponin I, Quant < 0.0120 ng/mL (0.00-0.120) 04/20/17 12:32 Total Protein 7.0 g/dL (6.3-8.3) 04/21/17 07:18 Albumin 3.5 g/dL (3.5-5.0) 04/21/17 07:18 Globulin 3.5 gm/dL (2.2-3.9) 04/21/17 07:18 Albumin/Globulin Ratio 1.0 (1.0-2.1) 04/21/17 07:18 Lipase 240 U/L (23-300) 04/20/17 08:10 Arterial Blood Potassium 2.3 mmol/L (3.6-5.2) L* 04/20/17 19:30 Urine Color Straw (YELLOW) 04/20/17 12:32 Urine Clarity Clear (Clear) 04/20/17 12:32 Urine pH 7.0 (5.0-8.0) 04/20/17 12:32 Ur Specific Hollister 1.012 (1.003-1.030) 04/20/17 12:32 Urine Protein Negative mg/dL (NEGATIVE) 04/20/17 12:32 Urine Glucose (UA) Normal mg/dL (Normal) 04/20/17 12:32 Urine Ketones Negative mg/dL (NEGATIVE) 04/20/17 12:32 Urine Blood 1+ (NEGATIVE) H 04/20/17 12:32 Urine Nitrate Negative (NEGATIVE) 04/20/17 12:32 Urine Bilirubin Negative (NEGATIVE) 04/20/17 12:32 Urine Urobilinogen Normal mg/dL (0.2-1.0) 04/20/17 12:32 Ur Leukocyte Esterase Neg Barbara/uL (Negative) 04/20/17 12:32 Urine WBC (Auto) < 1 /hpf (0-5) 04/20/17 12:32 Urine RBC (Auto) 2 /hpf (0-3) 04/20/17 12:32 Ur Squamous Epith Cells 3 /hpf (0-5) 04/20/17 12:32 Urine Bacteria Rare (<OCC) 04/17/17 15:13 Hyaline Casts 0-2 /lpf (0-2) 04/17/17 15:13 Urine HCG, Qual Negative (NEGATIVE) 04/17/17 15:13 - Hospital Course Hospital Course: "CC: abdominal pain HPI: 36F with history of recent lap liane 6 days ago for cholecystitis presented today. Pt has been doing well until today when she started having right sided abdominal pain. Patient said she has pain RLQ and RUQ and both described as sharp pain. Her RLQ pain radiates to the back. Patient also said she has associated burning urination, fever and chills. Patient also had 3 episodes of NBNB vomit. Patient also said she only had one episode of BM since her operation. Denied chest pain, palpitations, SOB, diarrhea, hematuria." Patient came to ED at [facility] 6 days after a laparoscopic cholecystectomy at [facility]. Patient had been doing well but was now complaining of sharp RLQ and RUQ abdominal pain. Patient had 3 episodes of NBNB vomit. Patient had only had one bowel movement since operation. Patient was admitted to the hospital and gi (Dr. Resendiz) and surgery (Dr. Arroyo) were consulted. CT of abdomen and pelvis were done on 04/17 with no significant findings. Chest xray had no findings. Bladder ultrasound was unremarkable. Urine and blood cultures were negative. Patient was signed off by surgery and GI on 04/19 and patient started on a regular diet. The morning of 04/20 patient said she was not feeling well all night after eating some apple. Pain was managed with Dilaudid .5 mg. Patient complained of some right shoulder pain and EKG was ordered which showed normal sinus rhythm. Troponin was negative. Patient was starting to feel better using warm compresses on her abdomen. In the afternoon patient's pain became more severe. Patient's vital signs were stable but she was having a lot of discomfort. CTA of chest, abdomen , and pelvis came back as normal. ABG and lipase were ordered stat and came back normal. On 04/21 HIDA scan showed no biliary leak. Patient's pain was resolving. Patient had a large bowel movement and said it relieved some of her pain. GI and Surgery signed off again on the patient. Patient was cleared for discharge as per Dr. Ferguson. Patient should follow up with [facility] for status post cholecystectomy. Patient may also follow up with [facility]. Patient should resume home medication of: Percocet 5/325 mg 1 tab by mouth every 4 hours as needed for 5 days. Patient should additionally take the medications below as prescribed: Ciprofloxacin 250mg by mouth twice daily for 3 days. Flagyl 500 mg by mouth three times a day for 3 days. Protonix 40 mg once per day for 30 days. This summary of hospital course. Please see chart for full details. Discharge Exam - Head Exam Head Exam: NORMOCEPHALIC Discharge Plan - Discharge Medications Prescriptions: Ciprofloxacin [Cipro] 250 mg PO BID #6 tab Metronidazole [Flagyl] 500 mg PO TID #9 tablet oxyCODONE/Acetaminophen [Percocet 5/325 mg Tab] 1 tab PO Q4 PRN #30 PRN Reason: pain Pantoprazole Sodium [Protonix] 40 mg PO DAILY #30 ect - Follow Up Plan Condition: FAIR Disposition: HOME/ ROUTINE Instructions: Low Fat Diet (DC), Soft Diet (DC), Acute Abdominal Pain (DC), Acute Abdominal Pain (GEN) Additional Instructions: Patient stable for discharge as per Dr. Ferguson. Patient should resume home medication of: Percocet 5/325 mg 1 tab by mouth every 4 hours as needed for 5 days. Patient should additionally take the medications below as prescribed: Ciprofloxacin 250mg by mouth twice daily for 3 days. Flagyl 500 mg by mouth three times a day for 3 days. Protonix 40 mg once per day for 30 days. Patient should follow up with surgery at [facility] where her cholecystectomy was performed within one week. Patient should return to ED immediately if symptoms return or worsen. Instructions discussed with patient who understood and agreed. Referrals: [facility] [Provider Group] <Brendon Ferguson - Last Filed: 04/21/17 18:36> Provider - Provider Date of Admission: 04/17/17 17:28 Attending physician: Kody Dooley MD Hospital Course - Lab Results Lab Results: Micro Results 04/20/17 14:00 Urine,Clean Catch Urine Culture - Final No Growth (<1,000 CFU/ML) 04/17/17 18:15 Blood Blood Culture - Preliminary NO GROWTH AFTER 3 DAYS 04/17/17 17:40 Blood Blood Culture - Preliminary NO GROWTH AFTER 3 DAYS 04/17/17 Unknown Urine Urine Culture - Final 10-50,000 CFU/ML. MULTIPLE SPECIES. PROBABLE CONTAMINATION. Most Recent Lab Values WBC 10.7 K/uL (4.8-10.8) 04/21/17 07:18 RBC 4.37 Mil/uL (3.80-5.20) 04/21/17 07:18 Hgb 11.5 g/dL (11.0-16.0) 04/21/17 07:18 Hct 35.1 % (34.0-47.0) 04/21/17 07:18 MCV 80.4 fL (81.0-99.0) L 04/21/17 07:18 MCH 26.3 pg (27.0-31.0) L 04/21/17 07:18 MCHC 32.6 g/dL (33.0-37.0) L 04/21/17 07:18 RDW 13.3 % (11.5-14.5) 04/21/17 07:18 Plt Count 312 K/uL (130-400) 04/21/17 07:18 MPV 8.3 fL (7.2-11.7) 04/21/17 07:18 Neut % (Auto) 77.5 % (50.0-75.0) H 04/21/17 07:18 Lymph % (Auto) 11.3 % (20.0-40.0) L 04/21/17 07:18 [place] % (Auto) 6.3 % (0.0-10.0) 04/21/17 07:18 Eos % (Auto) 4.5 % (0.0-4.0) H 04/21/17 07:18 Baso % (Auto) 0.4 % (0.0-2.0) 04/21/17 07:18 Neut # 8.3 K/uL (1.8-7.0) H 04/21/17 07:18 Lymph # 1.2 K/uL (1.0-4.3) 04/21/17 07:18 [place] # 0.7 K/uL (0.0-0.8) 04/21/17 07:18 Eos # 0.5 K/uL (0.0-0.7) 04/21/17 07:18 Baso # 0.0 K/uL (0.0-0.2) 04/21/17 07:18 Neutrophils % (Manual) 89 % (50-75) H 04/20/17 08:37 Band Neutrophils % 2 % (0-2) 04/17/17 14:38 Lymphocytes % (Manual) 7 % (20-40) L 04/20/17 08:37 Monocytes % (Manual) 4 % (0-10) 04/20/17 08:37 Eosinophils % (Manual) 1 % (0-4) 04/17/17 14:38 Platelet Estimate Normal (NORMAL) 04/20/17 08:37 RBC Morphology Normal 04/17/17 14:38 Hypochromasia (manual) Slight 04/20/17 08:37 Poikilocytosis (manual Slight 04/20/17 08:37 Anisocytosis (manual) Slight 04/20/17 08:37 Puncture Site Lr 04/20/17 19:30 pCO2 29 mm/Hg (35-45) L 04/20/17 19:30 pO2 152 mm/Hg (80-100) H 04/20/17 19:30 HCO3 19.8 mmol/L (21-28) L 04/20/17 19:30 ABG pH 7.38 (7.35-7.45) 04/20/17 19:30 ABG Total CO2 18.1 mmol/L (22-28) L 04/20/17 19:30 ABG O2 Saturation 100.0 % (95-98) H 04/20/17 19:30 ABG Base Excess -6.6 mmol/L (-2.0-3.0) L 04/20/17 19:30 Regulo Test P 04/20/17 19:30 ABG Potassium 2.3 mmol/L (3.6-5.2) L* 04/20/17 19:30 Sodium 144.0 mmol/l (132-148) 04/20/17 19:30 Chloride 117.0 mmol/L (98-107) H 04/20/17 19:30 Glucose 107 mg/dl (65-105) H 04/20/17 19:30 Lactate 0.6 mmol/L (0.7-2.1) L 04/20/17 19:30 Liter Flow 2.0 04/20/17 19:30 Crit Value Called To Dr dooley 04/20/17 19:30 Crit Value Called By [email or web address] 04/20/17 19:30 Crit Value Read Back Y 04/20/17 19:30 Blood Gas Notified Time 19404/20/17 19:30 Sodium 139 mmol/L (132-148) 04/21/17 07:18 Potassium 3.7 mmol/L (3.6-5.2) 04/21/17 07:18 Chloride 104 mmol/L (98-107) 04/21/17 07:18 Carbon Dioxide 24 mmol/L (22-30) 04/21/17 07:18 Anion Gap 14 (10-20) 04/21/17 07:18 BUN 6 mg/dL (7-17) L 04/21/17 07:18 Creatinine 0.6 MG/DL (0.7-1.2) L 04/21/17 07:18 Est GFR ( Amer) > 60 04/21/17 07:18 Est GFR (Non-Af Amer) > 60 04/21/17 07:18 Random Glucose 121 mg/dL (65-105) H 04/21/17 07:18 Lactic Acid 1.8 mmol/L (0.7-2.1) 04/17/17 18:46 Calcium 8.6 mg/dl (8.6-10.4) 04/21/17 07:18 Total Bilirubin 0.8 mg/dL (0.2-1.3) 04/21/17 07:18 Direct Bilirubin 0.6 mg/dL (0.0-0.4) H 04/20/17 08:10 AST 30 U/L (14-36) 04/21/17 07:18 ALT 55 U/L (9-52) H 04/21/17 07:18 Alkaline Phosphatase 83 U/L (38-126) 04/21/17 07:18 Total Creatine Kinase 57 U/L (30-135) 04/20/17 12:32 CK-MB (Mass) < 0.22 ng/mL (0.0-3.38) 04/20/17 12:32 Troponin I, Quant < 0.0120 ng/mL (0.00-0.120) 04/20/17 12:32 Total Protein 7.0 g/dL (6.3-8.3) 04/21/17 07:18 Albumin 3.5 g/dL (3.5-5.0) 04/21/17 07:18 Globulin 3.5 gm/dL (2.2-3.9) 04/21/17 07:18 Albumin/Globulin Ratio 1.0 (1.0-2.1) 04/21/17 07:18 Lipase 240 U/L (23-300) 04/20/17 08:10 Arterial Blood Potassium 2.3 mmol/L (3.6-5.2) L* 04/20/17 19:30 Urine Color Straw (YELLOW) 04/20/17 12:32 Urine Clarity Clear (Clear) 04/20/17 12:32 Urine pH 7.0 (5.0-8.0) 04/20/17 12:32 Ur Specific Hollister 1.012 (1.003-1.030) 04/20/17 12:32 Urine Protein Negative mg/dL (NEGATIVE) 04/20/17 12:32 Urine Glucose (UA) Normal mg/dL (Normal) 04/20/17 12:32 Urine Ketones Negative mg/dL (NEGATIVE) 04/20/17 12:32 Urine Blood 1+ (NEGATIVE) H 04/20/17 12:32 Urine Nitrate Negative (NEGATIVE) 04/20/17 12:32 Urine Bilirubin Negative (NEGATIVE) 04/20/17 12:32 Urine Urobilinogen Normal mg/dL (0.2-1.0) 04/20/17 12:32 Ur Leukocyte Esterase Neg Barbara/uL (Negative) 04/20/17 12:32 Urine WBC (Auto) < 1 /hpf (0-5) 04/20/17 12:32 Urine RBC (Auto) 2 /hpf (0-3) 04/20/17 12:32 Ur Squamous Epith Cells 3 /hpf (0-5) 04/20/17 12:32 Urine Bacteria Rare (<OCC) 04/17/17 15:13 Hyaline Casts 0-2 /lpf (0-2) 04/17/17 15:13 Urine HCG, Qual Negative (NEGATIVE) 04/17/17 15:13 Attending/Attestation - Attestation I have personally seen and examined this patient.: Yes I have fully participated in the care of the patient.: Yes I have reviewed all pertinent clinical information, including history, physical exam and plan: Yes Notes (Text): 04/21/17 18:33 Medical attending: Patient was seen and examined by me, agrees the above note by medical coder. Overnight she continued to have some pain however by this morning she reported that the pain was 2 out of 10. As documented above the resident note the patient we developed abdominal pain after she was introduced to regular diet. He had a chest abdomen and pelvis CAT scan done with IV and by mouth contrast, she did not have PE, lab work showed that she did not have ME. Her EKG was stable. She did not have any abdominal obstruction or bowel obstruction. She also reported normal bowel movements as well. In the morning she had a HIDA scan done which showed that it was stable she did not have a bile leak. The case was discussed with surgery and GI. I advised the patient to be very gently with soft foods such as Jell-O applesauce pudding advice to advance her diet very slowly. We had a medical translation computer service to help us with this. Ultimately she needs to follow-up with [facility] where she had her cholecystectomy done. She is going to be sent with pain medication for several days as well as some oral anti-biotics Thank you very much, Brendon Ferguson
== END 2017-04-21 18:33 | disposition home or self-care (01) | DRG 320 ==
LOC: C.ER 13:56 → C.9E 17:28 → C.3T 17:52
PROVIDERS: ADMIT Internal Medicine; ATTEND Internal Medicine
DX: N12 Tubulo-interstitial nephritis, not specified as acute or chronic (principal); E87.6 Hypokalemia; G43.909 Migraine, unspecified, not intractable, without status migrainosus; Z90.49 Acquired absence of other specified parts of digestive tract; R06.02 Shortness of breath

== ENCOUNTER 2017-07-08 10:51 | Emergency (ER) | payer OTHER ==
[2017-07-08 10:51] VITALS: BMI 26.6
[2017-07-08 11:02] VITALS: RESP 18; TEMP 98.2
--- NOTE | 2017-07-08 11:19 | C.PDOC ---
History Of Present Illness Patient complains of itching and occasional pain to surgical site from cholecystectomy on 04/22/17. Patient denies fever or discharge. Skin: healed laporoscopic scars to abdomen. wound proximal to periumbilical region with small scab wound likely from scratch, no erythema, no tenderness, no mass, no tactile warmth Time Seen by Provider: 07/08/17 11:04 Chief Complaint (Nursing): Wound Check History Per: Patient History/Exam Limitations: no limitations Onset/Duration Of Symptoms: Days Ago Quality Of Symptoms: Painful, Itching Past Medical History Reviewed: Historical Data, Nursing Documentation, Vital Signs Vital Signs: Last Vital Signs Temp 98.2 F 07/08/17 10:58 Pulse 85 07/08/17 11:41 Resp 18 07/08/17 11:41 BP 142/79 07/08/17 11:41 Pulse Ox 100 07/08/17 12:48 - Medical History PMH: Gall Bladder Disease (Gall bladder stones), Migraine Surgical History: Cholecystectomy (04/11/2017) - RNDOMN Procedures MANUAL ASSIST DELIV NEC (08/05/13) Family History: States: No Known Family Hx - Social History Hx Tobacco Use: No Hx Alcohol Use: No Hx Substance Use: No - Immunization History Hx Tetanus Toxoid Vaccination: Yes Hx Influenza Vaccination: No Hx Pneumococcal Vaccination: No Review Of Systems Except As Marked, All Systems Reviewed And Found Negative. Constitutional: Negative for: Fever Gastrointestinal: Negative for: Abdominal Pain Skin: Positive for: Other (Pain and itching to surgical site from cholecystectomy.) Physical Exam - Physical Exam Appears: Non-toxic, No Acute Distress Skin: Warm, Dry, Other ((+) Healed laporoscopic scars to abdomen. Wound proximal to periumbilical region with small scab wound likely from scratch, no erythema, no tenderness, no mass and no tactile warmth.) Head: Atraumatic, Normacephalic Eye(s): bilateral: Normal Inspection Oral Mucosa: Moist Neck: Normal ROM Chest: Symmetrical, No Tenderness Cardiovascular: Rhythm Regular, No Murmur Respiratory: Normal Breath Sounds, No Rales, No Rhonchi, No Stridor, No Wheezing Gastrointestinal/Abdominal: Normal Exam, Soft, No Tenderness, No Mass, No Distention, No Guarding, No Rebound Back: Normal Inspection, No CVA Tenderness Extremity: Normal ROM, No Swelling Neurological/Psych: Oriented x3, Normal Speech Gait: Steady ED Course And Treatment O2 Sat by Pulse Oximetry: 100 (RA) Pulse Ox Interpretation: Normal Medical Decision Making Medical Decision Making: Patient with cholecystectomy on 04/22/17 and complains of itching to surgical wound. Patient appears well nontoxic and in no distress. She has no fever. Wound shows no signs of cellulites, abscess, hematoma or seroma. Patient advised to not scratch and avoid touching site. Can follow up in the clinic. Disposition Counseled Patient/Family Regarding: Diagnosis, Need For Followup - Disposition Referrals: [facility] [Outside] [facility] [Outside] Disposition: HOME/ ROUTINE Disposition Time: 11:20 Condition: STABLE Additional Instructions: aplicar crema a la zarina 1-2 veces al da evite rayar o tocar el efrem por favor, siga en la clnica Prescriptions: Hydrocortisone [Cortisone] 28 gm TP BID #1 cream..g. Instructions: Acute Wound Care (ED) Forms: [employer] ([place] Citizen) Print Language: SERBIAN - POA Present On Arrival: None - Clinical Impression Clinical Impression: Visit for wound check - PA / SENIOR INTEGRATION ARCHITECT / Resident Statement MD/DO has reviewed & agrees with the documentation as recorded. - Scribe Statement The provider has reviewed the documentation as recorded by the Scribe Mallory Nagy All medical record entries made by the Scribe were at my direction and personally dictated by me. I have reviewed the chart and agree that the record accurately reflects my personal performance of the history, physical exam, medical decision making, and the department course for this patient. I have also personally directed, reviewed, and agree with the discharge instructions and disposition.
[2017-07-08] MEDS ORDERED: Bacitracin 500 Units/gm Oint Foilpak UD TOP ONE (11:23)
[2017-07-08] MEDS ORDERED: Bacitracin 500 Units/gm Oint Foilpak UD ONE (11:28)
[2017-07-08 11:42] VITALS: BP 142/79; PULSE 85
[2017-07-08 12:48] VITALS: O2SAT 100
== END 2017-07-08 11:43 | disposition home or self-care (01) ==
LOC: C.ER 10:51
DX: Z48.01 Encounter for change or removal of surgical wound dressing (principal)

== ENCOUNTER 2017-08-03 12:39 | Emergency (ER) | payer OTHER, SELFPAY ==
[2017-08-03 12:39] VITALS: BMI 26.6
[2017-08-03 13:02] VITALS: RESP 18; TEMP 98.3
--- NOTE | 2017-08-03 15:14 | C.PDOC ---
History Of Present Illness The patient is a 37yo female with complaints of bilateral sore throat and right lateral neck pain. Patient also reports redness and itching sensations to her left eye with discharge. She reports that her child is presenting with similar symptoms. She offers no other medical complaints. Time Seen by Provider: 08/03/17 13:13 Chief Complaint (Nursing): ENT Problem History Per: Patient History/Exam Limitations: None Onset/Duration Of Symptoms: Days Current Symptoms Are (Timing): Still Present Past Medical History Reviewed: Historical Data, Nursing Documentation, Vital Signs Vital Signs: Last Vital Signs Temp 98.3 F 08/03/17 15:27 Pulse 74 08/03/17 15:27 Resp 18 08/03/17 15:27 BP 131/75 08/03/17 15:27 Pulse Ox 98 08/03/17 15:27 - Medical History PMH: Gall Bladder Disease (Gall bladder stones), Migraine Surgical History: Cholecystectomy (04/11/2017) - DFMSim Procedures MANUAL ASSIST DELIV NEC (08/05/13) Family History: States: Unknown Family Hx - Social History Hx Tobacco Use: No Hx Alcohol Use: No Hx Substance Use: No - Immunization History Hx Tetanus Toxoid Vaccination: Yes Hx Influenza Vaccination: No Hx Pneumococcal Vaccination: No Review Of Systems Constitutional: Negative for: Fever Eyes: Positive for: Pain, Redness ENT: Positive for: Throat Pain Physical Exam - Physical Exam Additional Physical Exam Comments: Constitutional: No acute distress. WDWN. Head: Normocephalic. Atraumatic. Eyes: PERRL. EOMI. Left eye with mild conjunctival injection. ENT: Mild pharyngeal erythema. No tonsilar swelling or exudates noted. Right submandibular lymphadenopathy and tenderness noted. Neck: Supple. Cardiovascular: Regular rate and rhythm. Chest: No tenderness. Respiratory: Clear to auscultation bilaterally. Neurologic: Alert, no focal deficit. ED Course And Treatment O2 Sat by Pulse Oximetry: 99 (RA) Pulse Ox Interpretation: Normal Medical Decision Making Medical Decision Making: Impression: 37yo female with throat pain, left eye pain Plan: -- Tylenol 975 mg PO -- Rapid Strep Disposition Counseled Patient/Family Regarding: Diagnosis, Need For Followup, Rx Given - Disposition Referrals: [facility] [Outside] [facility] [Outside] Disposition: HOME/ ROUTINE Disposition Time: 15:12 Condition: STABLE Additional Instructions: [place] el Tylenol (acetaminophen) para el dolor o la fiebre, Yaz lquidos aumentados. Aayush grgaras con agua salada caliente varias veces al da. Aplique marielos pomada de media pulgada en el santos guillermo dos veces al da. Seguimiento en la clnica mdica en unos cummins. Vuelva al ER para cualquier sntoma que empeora. Prescriptions: Erythromycin 0.5% [Erythromycin] 1 applic OS BID #1 tube Instructions: Cold Symptoms (ED) Forms: Gen Discharge Inst Bulgarian, [employer] (Hong Konger), [employer] (Bulgarian) Print Language: NEPALI - Clinical Impression Clinical Impression: URI (upper respiratory infection), Conjunctivitis - PA / CATTLE BRANDER / Resident Statement MD/DO has reviewed & agrees with the documentation as recorded. - Scribe Statement The provider has reviewed the documentation as recorded by the Solitario Powers Provider Attestation: All medical record entries made by the Suzieibe were at my direction and personally dictated by me. I have reviewed the chart and agree that the record accurately reflects my personal performance of the history, physical exam, medical decision making, and the department course for this patient. I have also personally directed, reviewed, and agree with the discharge instructions and disposition.
[2017-08-03 16:01] VITALS: BP 131/75; PULSE 74
[2017-08-03 17:18] VITALS: O2SAT 99
== END 2017-08-03 15:27 | disposition home or self-care (01) ==
LOC: C.ER 12:39
DX: J06.9 Acute upper respiratory infection, unspecified (principal); H10.9 Unspecified conjunctivitis

== ENCOUNTER 2017-11-07 10:24 | Emergency (ER) | payer SELFPAY ==
[2017-11-07 10:24] VITALS: BMI 26.6
[2017-11-07 10:30] VITALS: BP 124/85; PULSE 87; RESP 20; TEMP 99; O2SAT 98
--- NOTE | 2017-11-07 10:51 | C.PDOC ---
History Of Present Illness Patient presents to the ER with complaints of fever, body aches, malaise, cough and congestion for the past 3 days. Patient states she took Tylenol with no relief. Time Seen by Provider: 11/07/17 10:37 Chief Complaint (Nursing): Flu-like Symptoms History Per: Patient History/Exam Limitations: no limitations Onset/Duration Of Symptoms: Days (3) Location Of Pain: Diffuse Myalgias Sick Contacts (Context): Family Member(s) Ear Symptoms: Bilateral: None Past Medical History Reviewed: Historical Data, Nursing Documentation, Vital Signs Vital Signs: Last Vital Signs Temp 99 F 11/07/17 10:28 Pulse 87 11/07/17 10:28 Resp 20 11/07/17 10:28 BP 124/85 11/07/17 10:28 Pulse Ox 98 11/07/17 11:22 - Medical History PMH: Gall Bladder Disease (Gall bladder stones), Migraine Surgical History: Cholecystectomy (04/11/2017) - [email or web address] Procedures MANUAL ASSIST DELIV NEC (08/05/13) Family History: States: No Known Family Hx - Social History Hx Tobacco Use: No Hx Alcohol Use: No Hx Substance Use: No - Immunization History Hx Tetanus Toxoid Vaccination: Yes Hx Influenza Vaccination: No Hx Pneumococcal Vaccination: No Review Of Systems Constitutional: Positive for: Fever, Malaise, Other (body aches) Eyes: Negative for: Vision Change, Redness ENT: Positive for: Nose Congestion. Negative for: Throat Pain Cardiovascular: Negative for: Chest Pain, Palpitations Respiratory: Positive for: Cough. Negative for: Shortness of Breath Gastrointestinal: Positive for: Nausea. Negative for: Vomiting, Abdominal Pain , Diarrhea Genitourinary: Negative for: Dysuria Skin: Negative for: Rash Neurological: Negative for: Weakness, Numbness, Headache Physical Exam - Physical Exam Appears: Non-toxic, No Acute Distress Skin: Warm, Dry, No Diaphoretic, No Pale, No Rash Head: Atraumatic, Normacephalic Eye(s): bilateral: Normal Inspection, PERRL, EOMI Ear(s): Bilateral: Normal Nose: Normal, No Flaring, No Discharge Oral Mucosa: Moist Lips: Normal Appearing Throat: Normal, No Erythema, No Exudate, No Drooling Neck: Normal, Normal ROM, Supple Cardiovascular: Rhythm Regular, No Murmur Respiratory: Normal Breath Sounds, No Rales, No Rhonchi, No Stridor, No Wheezing Gastrointestinal/Abdominal: Bowel Sounds (active), Soft, No Tenderness, No Distention, No Guarding Back: Normal Inspection, No CVA Tenderness Extremity: Bilateral: Atraumatic, Normal ROM Neurological/Psych: Oriented x3, Normal Speech Gait: Steady ED Course And Treatment O2 Sat by Pulse Oximetry: 98 (RA) Pulse Ox Interpretation: Normal Medical Decision Making Medical Decision Making: Patient with multiple symptoms for 3 days, likely viral illness and Influenza. Patient out of time frame to receive Tamiflu. Patient has no fever and appears well nontoxic and in no distress. exam benign. Recommend rest, fluids and symptomatic relief. Rx given. Disposition Counseled Patient/Family Regarding: Diagnosis, Need For Followup, Rx Given - Disposition Referrals: [facility] [Outside] [facility] [Outside] Disposition: HOME/ ROUTINE Disposition Time: 10:48 Condition: STABLE Additional Instructions: usted tiene Flu tome Tylenol o Motrin cada 4 a 6 horas para la fiebre [place] Motrin para el dolor cada 6 horas. Candace lquidos y descansa Aayush un seguimiento con tijerina mdico o clnica para recibir ms atencin Prescriptions: Brompheniramine/Pseudoephed/Dm [Bromfed Dm Cough 118 ml] 5 ml PO Q8 PRN #4 oz PRN Reason: Cough And Congestion Ibuprofen [Motrin] 600 mg PO Q8 #30 tab Instructions: Influenza (ED) Print Language: CHINESE - POA Present On Arrival: None - Clinical Impression Clinical Impression: Influenza - PA / MANAGER CLINIC / Resident Statement MD/DO has reviewed & agrees with the documentation as recorded. - Scribe Statement The provider has reviewed the documentation as recorded by the Scribe Mallory Nagy All medical record entries made by the Scribe were at my direction and personally dictated by me. I have reviewed the chart and agree that the record accurately reflects my personal performance of the history, physical exam, medical decision making, and the department course for this patient. I have also personally directed, reviewed, and agree with the discharge instructions and disposition.
== END 2017-11-07 11:03 | disposition home or self-care (01) ==
LOC: C.ER 10:24
DX: J11.1 Influenza due to unidentified influenza virus with other respiratory manifestations (principal)

== ENCOUNTER 2018-01-29 16:32 | Emergency (ER) | payer SELFPAY ==
[2018-01-29 16:33] VITALS: BMI 26.6
[2018-01-29 16:45] VITALS: BP 160/95; PULSE 79; RESP 16; TEMP 98; O2SAT 99
--- NOTE | 2018-01-29 17:06 | C.PDOC ---
History Of Present Illness 37 y/o female with no significant past medical history presents to the emergency department complaining of bilateral ear discomfort and decreased hearing bilaterally for the last x5 days. She denies fever, chills, ear discharge, ear ringing or headache, dizziness. Time Seen by Provider: 01/29/18 16:41 Chief Complaint (Nursing): ENT Problem History Per: Patient History/Exam Limitations: None Onset/Duration Of Symptoms: Days (x5) Current Symptoms Are (Timing): Still Present Quality (Ear): Other (discomfort and decreased hearing B/L ) Symptoms Have Been: Continuous Severity: Mild Past Medical History Reviewed: Historical Data, Nursing Documentation, Vital Signs Vital Signs: Last Vital Signs Temp 98 F 01/29/18 16:42 Pulse 79 01/29/18 16:42 Resp 16 01/29/18 16:42 BP 160/95 H 01/29/18 16:42 Pulse Ox 99 01/29/18 18:44 - Medical History PMH: Gall Bladder Disease (Gall bladder stones), Migraine Surgical History: Cholecystectomy (04/11/2017) - [employer] Procedures MANUAL ASSIST DELIV NEC (08/05/13) Family History: States: No Known Family Hx - Social History Hx Tobacco Use: No Hx Alcohol Use: No Hx Substance Use: No - Immunization History Hx Tetanus Toxoid Vaccination: Yes Hx Influenza Vaccination: No Hx Pneumococcal Vaccination: No Review Of Systems Except As Marked, All Systems Reviewed And Found Negative. Constitutional: Negative for: Fever, Chills ENT: Positive for: Other (ear discomfort and decreased hearing B/L) Respiratory: Negative for: Cough, Shortness of Breath Genitourinary: Negative for: Dysuria, Hematuria Skin: Negative for: Rash Physical Exam - Physical Exam Appears: Well, Non-toxic, No Acute Distress Skin: Normal Color, Warm, Dry Eye(s): bilateral: Normal Inspection Ear(s): Bilateral: Other (cerumen B/L) Nose: Normal Oral Mucosa: Moist Throat: Normal, No Erythema, No Exudate Neurological/Psych: Oriented x3 ED Course And Treatment O2 Sat by Pulse Oximetry: 99 (RA) Pulse Ox Interpretation: Normal Progress Note: Initial Impression: Cerumen impaction. Initial Plan: -Debrox Ear Drops instilled in ED. Rx for debrox also given. Patient instructed to follow up with ENT within 1 week. She understands she should return to ED if symptoms worsen. Disposition Counseled Patient/Family Regarding: Diagnosis, Need For Followup, Rx Given - Disposition Referrals: Ramírez Rae MD [Staff Provider] - Disposition: HOME/ ROUTINE Disposition Time: 17:05 Condition: STABLE Additional Instructions: FOLLOW UP WITH EAR NOSE THROAT SPECIALIST WITHIN 1 WEEK USE MEDICATIONS DIRECTED RETURN TO EMERGENCY ROOM IF SYMPTOMS WORSEN SEGUIMIENTO CON ESPECIALISTA DE [place] DE OJOS DE ODO DENTRO DE 1 SEMANA USE MEDICAMENTOS SEGN LO INDICADO REGRESE AL CAROLINE DE EMERGENCIA SI LOS SNTOMAS EMPEORAN Prescriptions: Carbamide Peroxide [Debrox 15 Ml] 5 drop GT BID #1 bottle Instructions: Ear Wax Impaction (DC) Forms: [employer] (Kyrgyz) Print Language: WELSH - POA Present On Arrival: None - Clinical Impression Clinical Impression: Impacted cerumen of both ears - Scribe Statement The provider has reviewed the documentation as recorded by the Suzieibmaxine Petit Provider Attestation: All medical record entries made by the Scribe were at my direction and personally dictated by me. I have reviewed the chart and agree that the record accurately reflects my personal performance of the history, physical exam, medical decision making, and the department course for this patient. I have also personally directed, reviewed, and agree with the discharge instructions and disposition.
== END 2018-01-29 17:28 | disposition home or self-care (01) ==
LOC: C.ER 16:32
DX: H61.23 Impacted cerumen, bilateral (principal)

== ENCOUNTER 2018-02-07 11:11 | Emergency (ER) | payer SELFPAY ==
[2018-02-07 11:20] VITALS: BMI 23.0
[2018-02-07 11:23] VITALS: O2SAT 99
[2018-02-07] MEDS ORDERED: Aluminum Hydroxide/Magnesium Hydroxide Susp (30 mL) PO STA (12:07)
[2018-02-07] MEDS ORDERED: Belladonna-Phenobarbital PO STA (12:07)
[2018-02-07] MEDS ORDERED: Sodium Chloride 0.9% 1,000 ML IV ONE (12:07)
[2018-02-07] MEDS ORDERED: Belladonna-Phenobarbital ONE (12:35)
[2018-02-07] MEDS ORDERED: Aluminum Hydroxide/Magnesium Hydroxide Susp (30 mL) ONE (12:36)
[2018-02-07] MEDS ORDERED: Sodium Chloride 0.9% 1,000 ML ONE (12:36)
[2018-02-07 12:37] LABS: HCG,QUALITATIVE URINE NEGATIVE (NEGATIVE)
[2018-02-07 12:41] LABS: SQUAMOUS EPITHIAL 24 /hpf (0-5); URINE BILIRUBIN NEGATIVE (NEGATIVE); URINE BLOOD 2+ (NEGATIVE); URINE CLARITY Hazy (Clear); URINE COLOR Yellow (YELLOW); URINE GLUCOSE (UA) NORMAL (Normal); URINE LEUKOCYTE ESTERASE 1+ Leu/uL (Negative); URINE PROTEIN 1+ mg/dL (NEGATIVE)
[2018-02-07 13:02] LABS: BASO % 0.5 % (0.0-2.0); EOS % 0.3 % (0.0-4.0); HEMOGLOBIN 12.3 g/dL (11.0-16.0); LYMPH # 1.1 K/uL (1.0-4.3); LYMPH % 19.3 % (20.0-40.0); MEAN CELL VOLUME 80.5 fL (81.0-99.0); MEAN CORPUSCULAR HEMOGLOBIN 26.7 pg (27.0-31.0); MEAN CORPUSCULAR HGB CONC 33.1 g/dL (33.0-37.0); MONO # 0.5 K/uL (0.0-0.8); NEUT # 4.2 K/uL (1.8-7.0); NEUT % 71.9 % (50.0-75.0); NRBC % 0.1 % (0.0-2.0); RBC 4.63 Mil/uL (3.80-5.20); RED CELL DISTRIBUTION WIDTH 13.4 % (11.5-14.5); WHITE BLOOD COUNT 5.9 K/uL (4.8-10.8)
[2018-02-07 13:44] LABS: BLOOD UREA NITROGEN 9 mg/dL (7-17); GFR AFRICAN-AMERICAN > 60; GFR NON-AFRICAN AMERICAN > 60
[2018-02-07 13:45] LABS: ALB/GLOB RATIO 1.1 (1.0-2.1); ALBUMIN 3.5 g/dL (3.5-5.0); ALT/SGPT 14 U/L (9-52); AST/SGOT 24 U/L (14-36); CALCIUM 7.6 mg/dl (8.6-10.4); LIPASE 30 U/L (23-300)
[2018-02-07 14:24] VITALS: BP 112/73; PULSE 60; RESP 16; TEMP 98.2
--- NOTE | 2018-02-07 15:13 | C.PDOC ---
History Of Present Illness 37 year old female presents to the ED for evaluation of epigastric abdominal pain which began yesterday. Patient states her symptoms began after she ate a ham and cheese sandwich. She had an episode of vomiting yesterday but denies any today. Patient reports nausea and decreased PO intake. Patient denies fever , chills. Chief Complaint (Nursing): Abdominal Pain History Per: Patient History/Exam Limitations: no limitations Onset/Duration Of Symptoms: Hrs Current Symptoms Are (Timing): Still Present Location Of Pain/Discomfort: Epigastric Radiation Of Pain To:: None Quality Of Discomfort: "Pain" Associated Symptoms: Nausea, Vomiting. denies: Fever, Chills Additional History Per: Patient Abnormal Vaginal Bleeding: No Past Medical History Reviewed: Historical Data, Nursing Documentation, Vital Signs Vital Signs: Last Vital Signs Temp 98.2 F 02/07/18 14:23 Pulse 60 02/07/18 14:23 Resp 16 02/07/18 14:23 BP 112/73 02/07/18 14:23 Pulse Ox 99 02/07/18 15:23 - Medical History PMH: Gall Bladder Disease (Gall bladder stones), Migraine Surgical History: Cholecystectomy (04/11/2017) - [employer] Procedures MANUAL ASSIST DELIV NEC (08/05/13) Family History: States: Unknown Family Hx - Social History Hx Tobacco Use: No Hx Alcohol Use: No Hx Substance Use: No - Immunization History Hx Tetanus Toxoid Vaccination: Yes Hx Influenza Vaccination: No Hx Pneumococcal Vaccination: No Review Of Systems Constitutional: Positive for: Other (decreased PO intake ). Negative for: Fever , Chills Gastrointestinal: Positive for: Nausea, Vomiting, Abdominal Pain (epigastric ) Physical Exam - Physical Exam Appears: Non-toxic, No Acute Distress Skin: Normal Color, Warm, Dry Head: Atraumatic, Normacephalic Eye(s): bilateral: Normal Inspection Oral Mucosa: Moist Neck: Supple Chest: Symmetrical, No Deformity, No Tenderness Cardiovascular: Rhythm Regular, No Murmur Respiratory: Normal Breath Sounds, No Rales, No Rhonchi, No Wheezing Gastrointestinal/Abdominal: Soft, Tenderness (mild, epigastric ), No Guarding, No Rebound Extremity: Normal ROM, Capillary Refill (less than 2 seconds ) Neurological/Psych: Oriented x3, Normal Speech, Normal Cognition ED Course And Treatment - Laboratory Results Result Diagrams: 02/07/18 12:51 02/07/18 13:21 O2 Sat by Pulse Oximetry: 99 (on RA) Medical Decision Making Medical Decision Making: Impression: 37 year old female with epigastric abdominal pain, nausea, vomiting Plan: * Bloodwork * urinalysis * PO * Maalox PO * Pepcid IVP * Zofran IVP * IV Fluids * reassess and disposition Progress: Bloodwork and UA ordered and reviewed. PO, Maalox PO, Pepcid IVP, Zofran IVP and IV Fluids administered. On reassessment, patient is resting comfortably, showing no signs of distress and reports an improvement in her symptoms. Patient is stable for discharge and is advised to f/u with her PMD within 1-2 days for further evaluation. Disposition - Disposition Referrals: [facility] [Outside] [facility] [Outside] Disposition: HOME/ ROUTINE Disposition Time: 13:50 Condition: IMPROVED Additional Instructions: Thank you for letting us take care of you today. The emergency medical care you received today was directed at your acute symptoms. If you were prescribed any medication, please fill it and take as directed. It may take several days for your symptoms to resolve. Return to the Emergency Department if your symptoms worsen, do not improve, or if you have any other problems. Please contact your doctor or call one of the physicians/clinics you have been referred to that are listed on the Patient Visit Information form that is included in your discharge packet. Bring any paperwork you were given at discharge with you along with any medications you are taking to your follow up visit. Our treatment cannot replace ongoing medical care by a primary care provider (PCP) outside of the emergency department. Thank you for allowing the [facility] team to be part of your care today. Follow up with the clinic this week for re-evaluation and further management. Annette por dejarnos atenderlo hoy. La atencin mdica de emergencia que recibi hoy estaba dirigida a payton sntomas agudos. Si le prescribieron algn medicamento, llnelo y tome segn las indicaciones. Payton sntomas pueden tardar varios cummins en resolverse. Regrese al Departamento de Emergencia si payton s ntomas empeoran, no mejoran o si tiene algn otro problema. Comunquese con tijerina mdico o llame a nicolasa de los mdicos / clnicas a los que garza sido referido que figura en el formulario de Informacin de visita del paciente que se incluye en tijerina paquete de nereida. Traiga todos los documentos que recibi al momento del nereida junto con los medicamentos que est tomando en tijerina visita de seguimiento. Nuestro tratamiento no puede reemplazar la atencin mdica en curso por parte de un proveedor de atencin primaria (PCP) fuera del departamento de emergencias. Annette por permitir que el equipo de [facility] sea parte de tijerina cuidado hoy. Aayush un seguimiento con la clnica esta semana para marielos reevaluacin y administracin adicional. Prescriptions: Ranitidine HCl [Zantac] 150 mg PO BID #20 tablet Instructions: Gastritis (DC) Forms: Gen Discharge Inst Irish, [employer] (Irish) Print Language: TURKISH - Clinical Impression Clinical Impression: Gastritis - Scribe Statement The provider has reviewed the documentation as recorded by the Scribe (Tiki Grady) Provider Attestation: All medical record entries made by the Scribe were at my direction and personally dictated by me. I have reviewed the chart and agree that the record accurately reflects my personal performance of the history, physical exam, medical decision making, and the department course for this patient. I have also personally directed, reviewed, and agree with the discharge instructions and disposition.
== END 2018-02-07 14:24 | disposition home or self-care (01) ==
LOC: C.ER 11:11
DX: K29.70 Gastritis, unspecified, without bleeding (principal)
CPT/HCPCS: 80053; 81001; 83690; 84703; 85025; 96361; 96374; 96375; 99284; J2405; J7040